=== PATIENT | female | born 1965 | race Caucasian/White ===

== ENCOUNTER 2019-04-06 08:03 | Emergency (ER) | payer MEDICARE, SELFPAY ==
[2019-04-06 08:17] VITALS: BP 134/78; PULSE 104; RESP 18; TEMP 36.2; O2SAT 98
[2019-04-06 08:19] VITALS: BP 121/78
--- NOTE | 2019-04-06 08:19 | ED.DIZZY ---
HPI - Dizziness General Chief Complaint: Dizziness Stated Complaint: Light Headed Time Seen by Provider: 04/06/19 08:20 Source: patient Mode of arrival: ambulatory Limitations: no limitations History of Present Illness HPI Narrative: Olivia Sullivan is a 54 yo female with a PMH of HTN and remote stroke, comes to [facility] with complaints of dizziness x 2 days. Initial BP showed some variance but not enough on sitting and standing for orthostatic hypotension. States had virus a few weeks ago but feeling normal recently. Related Data Home Medications Medication Instructions Recorded Confirmed Vitamin D2 5,000 units DAILY 04/06/19 04/06/19 lisinopril 20 mg PO DAILY 04/06/19 04/06/19 Allergies Allergy/AdvReac Type Severity Reaction Status Date / Time ADAPTIC GAUZE Allergy Severe RASH Uncoded 04/06/19 08:21 ANTIBACTERIAL SOAP Allergy Severe RASH Uncoded 04/06/19 08:21 MEPERIDINE HCL Allergy Unknown RASH Uncoded 04/06/19 08:21 PAROXETINE HCL Allergy Unknown HALLUCINATI Uncoded 04/06/19 08:21 ONS Review of Systems Review of Systems: Narrative: CONSTITUTIONAL: Denies fever, chills, sweats. EYES: Denies visual changes, redness, discharge. ENT: Denies rhinorrhea, congestion, sore throat, otalgia. CARDIOVASCULAR: Denies chest pain, palpitations, edema. RESPIRATORY: Denies dyspnea, wheezing, cough GASTROINTESTINAL: Denies abdominal pain, nausea, vomiting, diarrhea. GENITOURINARY: Denies dysuria, hematuria, abnormal discharge SKIN: Denies rash or itching. MUSCULOSKELETAL: Denies acute back pain, joint pain, or myalgia. NEUROLOGIC: Denies numbness, or focal weakness. States his dizziness on standing PSYCHIATRIC: Denies anxiety or depression. [facility] Family History Family History (Updated 10/27/09 @ 08:42 by DOCTOR UNKNOWN) Other Diabetes mellitus Family history of alcoholism Family history of cardiovascular disease Family history of malignant neoplasm Family history of osteoarthritis Family history of transient ischemic attacks Social History Social History Smoking status: Never smoker Alcohol intake: never Gender identity (if verbalized by the patient): Female Comments At time of signature, I agree with nursing past medical, surgical, social and family history. There is no relevant family history pertinent to the presenting complaint. Exam Narrative: Exam Narrative: GENERAL: This is a well-nourished, well-developed patient, in no apparent distress. HEAD: normocephalic, atraumatic. EYES: PERRL. Sclera clear/white. Vision is grossly intact. EARS: External ears normal, auditory canals clear and without drainage, TMs normal without perforation. Hearing grossly intact. NOSE: External nose normal with no obvious nasal discharge, nares without redness, no rhinorrhea. THROAT: Mucous membranes moist, posterior pharynx clear. NECK: Neck supple, non-tender CARDIOVASCULAR: Regular rate and rhythm without murmurs, gallops, or rubs. RESPIRATORY: Clear to auscultation. Breath sounds equal bilaterally. No wheezes, rales, or rhonchi. GASTROINTESTINAL: Abdomen soft, non-tender, SKIN: warm, intact with no suspicious lesions or rash, good texture and turgor. NEURO: awake, alert, and oriented to person, place and time. There were no obvious focal neurologic abnormalities. Steady gait using walker; has contracture of left hand from remote stroke EXTREMITIES: Normal range of motion. No edema. BACK: Nontender without deformity or crepitance. Course Vital Signs Vital signs: Vital Signs Temperature 97.1 F L 04/06/19 08:17 Pulse Rate 104 H 04/06/19 08:17 Respiratory Rate 18 04/06/19 08:17 Blood Pressure 134/78 04/06/19 08:17 Pulse Oximetry 98 04/06/19 08:17 Temperature 97.1 F L 04/06/19 08:17 Pulse Rate 104 H 04/06/19 08:17 Respiratory Rate 18 04/06/19 08:17 Blood Pressure 121/78 04/06/19 08:19 Pulse Oximetry 98 04/06/19 0
== END 2019-04-06 08:48 | disposition home or self-care (01) ==
PROVIDERS: Emergency Provider Nurse Practitioner; PCP Internal Medicine
DX: H81.13 Benign paroxysmal vertigo, bilateral (principal); Z86.73 Personal history of transient ischemic attack (TIA), and cerebral infarction without residual deficits; I10 Essential (primary) hypertension
CPT/HCPCS: 99213; G0463

== ENCOUNTER 2019-12-09 09:42 | Outpatient (CLI) | payer MEDICARE, SELFPAY ==
--- NOTE | 2019-12-09 10:39 | ECG_ITS ---
Measurements Intervals [place] Rate: 73 P: 32 RI: 166 QRS: -24 QRSD: 151 T: 98 QT: 402 QTc: 446 Interpretive Statements SINUS RHYTHM LEFT BUNDLE BRANCH BLOCK BASELINE ARTIFACT- I, II, III, AVR, AVL, AVF ABNORMAL ECG Electronically Signed On 12-09-2019 11:06:59 CDT by Marco A Bliss D.O.
[2019-12-09 11:13] LABS: Basophils Absolute Auto 0.1 K/mm3 (0.0-0.1); Basophils Percent Auto 0.8 % (0.2-1.2); Eosinophils Absolute Auto 0.3 K/mm3 (0-0.3); Eosinophils Percent Auto 3.4 % (0-4.4); Hematocrit 40.1 % (37.0-47.0); Hemoglobin 13.4 g/dL (12.0-15.0); Immature Granulocyte Absolute 0.02 K/mm3 (0.00-0.031); Immature Granulocyte Percent A 0.3 % (0-0.5); Lymphocytes Absolute Auto 2.05 K/mm3 (0.9-3.2); Lymphocytes Percent Auto 26.7 % (18.3-44.2); Mean Corpuscular HGB Conc 33.4 g/dl (32-36); Mean Corpuscular Hemoglobin 31.3 pg (26-34); Mean Corpuscular Volume 93.7 fl (80-100); Mean Platelet Volume 11.1 fl (7.4-10.4); Monocytes Percent Auto 12.5 % (2.6-8.5); Neutrophils Absolute Auto 4.3 K/mm3 (1.3-6.7); Neutrophils Percent Auto 56.3 % (45.5-73.1); Platelet Count Result 248 k/mm3 (150-375); Red Blood Count 4.28 M/mm3 (4.2-5.4); Red Cell Distribution Width 13.2 % (11.5-14.5); White Blood Count 7.7 K/mm3 (4.5-10.0)
[2019-12-09 11:14] LABS: Add Urine Microscopic? NO; Appearance Urine Clear (Clear); Bilirubin Urine Negative (Negative); Blood Urine Negative (Negative); Color Urine Yellow (Yellow); Glucose Urine UA Negative (Negative); Ketones Urine Negative (Negative); Leukocyte Esterase Ur Negative LEU/UL (Negative); Nitrate Urine Negative (Negative); Protein Urine Negative (Negative); Urobilinogen Urine Negative mg/dL (<2.0)
[2019-12-09 11:21] LABS: Prothrombin Time 12.4 Seconds (11.1-14.7)
[2019-12-09 11:22] LABS: Partial Thromboplastin Time 25.2 SECONDS (22.3-36.8)
[2019-12-09 11:23] LABS: Hemoglobin A1C 5.1 % (<5.7); Urine Cotinine NEGATIVE
[2019-12-09 11:24] LABS: Albumin Level 4.3 g/dL (3.5-5.1); Anion Gap 7 mmol/L (8-16); Blood Urea Nitrogen 20 mg/dL (7-17); Calcium 9.4 mg/dL (8.4-10.2); Carbon Dioxide 28 mmol/L (22-30); Chloride 104 mmol/L (98-107); Estimated Glomerular Filt Rate 52; Glucose 93 mg/dL (65-105); Potassium 4.4 mmol/L (3.4-5.0); Sodium 139 mmol/L (137-145)
== END 2019-12-09 09:43 | disposition home or self-care (01) ==
PROVIDERS: PCP Internal Medicine; Visit Provider Orthopaedic Surgery
DX: Z01.812 Encounter for preprocedural laboratory examination (principal); M17.11 Unilateral primary osteoarthritis, right knee; Z01.810 Encounter for preprocedural cardiovascular examination
CPT/HCPCS: 36415; 80048; 80307; 81003; 82040; 83036; 85025; 85610; 85730; 86850; 86900; 86901; 87081; 93005

== ENCOUNTER 2019-12-14 00:35 | Outpatient (CLI) | payer MEDICARE, SELFPAY ==
[2019-12-14 17:37] LABS: SARS-CoV-2 RNA PCR Negative
== END 2019-12-14 00:36 | disposition home or self-care (01) ==
LOC: ANHCOVIDDT 00:35
PROVIDERS: PCP Internal Medicine; Visit Provider Orthopaedic Surgery
DX: Z01.812 Encounter for preprocedural laboratory examination (principal); Z20.828 Contact with and (suspected) exposure to other viral communicable diseases
CPT/HCPCS: 87635; C9803; U0003

== ENCOUNTER 2019-12-18 14:53 | Observation (INO) | payer MEDICARE, SELFPAY ==
[2019-12-09 10:02] VITALS: BMI 38.4
[2019-12-09 10:36] VITALS: BP 124/77; PULSE 80; RESP 16; TEMP 36.9; O2SAT 98
[2019-12-17] VITALS (10 sets, daily range): BP systolic 108–139; BP diastolic 55–80; PULSE 72–106; RESP 13–27; TEMP 35.7–37.2; O2SAT 93–99
--- NOTE | 2019-12-17 07:20 | WPDHPUPDATE1 ---
History and Physical Update Update Date/Time: 12/17/19 07:20 History and Physical has been reviewed, including an updated exam of the patient. There are NO changes in the patient's condition. Risks, benefits, and alternatives have been discussed and questions answered. Patient agrees to proceed with procedure.
--- NOTE | 2019-12-17 09:46 | WPDANESEPPF ---
Anes - Initial Pre Proc Eval Procedure: Operation Date: 12/17/19 11:30 Proposed Procedures p Right Total Knee Arthroplasty - Miguel Murphy MD Date/Time: 12/17/19 09:46 Surgeon: Miguel Murphy MD Pre Op Diagnosis: Right Knee DJD Patient Data Age: 54 Gender: F Height: 1.65 m Weight: 103.5 kg Last Vital Signs Temp 36.9 C 12/09/19 10:36 Pulse 80 12/09/19 10:36 Resp 16 12/09/19 10:36 BP 124/77 12/09/19 10:36 Pulse Ox 98 12/09/19 10:36 Allergies Allergy/AdvReac Type Severity Reaction Status Date / Time meperidine Allergy Severe Rash Verified 12/17/19 09:47 paroxetine AdvReac Mild Hallucinati Verified 12/17/19 09:48 ng ADAPTIC GAUZE Allergy Severe RASH Uncoded 12/09/19 13:08 ANTIBACTERIAL SOAP Allergy Severe RASH Uncoded 12/09/19 13:08 Home Medications Medication Instructions Recorded Confirmed Type lisinopril 20 mg PO HS 04/06/19 12/17/19 History chlorhexidine gluconate 4 % 1 applic TOPICAL ONCE #237 ml 11/19/19 12/09/19 Rx topical liquid cholecalciferol (vitamin D3) 125 mcg PO HS 12/09/19 12/17/19 History ECG: Date of Service: 12/09/19 Procedure(s): CA 12 lead EKG Accession Number(s): [id number] cc: ~ Measurements Intervals [place] Rate: 73 P: 32 HI: 166 QRS: -24 QRSD: 151 T: 98 QT: 402 QTc: 446 Interpretive Statements SINUS RHYTHM LEFT BUNDLE BRANCH BLOCK BASELINE ARTIFACT- I, II, III, AVR, AVL, AVF ABNORMAL ECG Electronically Signed On 12-09-2019 11:06:59 CDT by Marco A Bliss D.O. Dictated By: Marco A Bliss DO 12/09/19 1109 Patient hx anesthesia problems: none Family hx anesthesia problems: none PMFSH Past Medical History Medical History (Updated 12/17/19 @ 09:47 by Jose De Los Santos MD) Chondromalacia patellae of right knee CVA (cerebral vascular accident) HTN (hypertension) Obesity Primary osteoarthritis of right knee Traumatic arthritis of left ankle Surgical History Surgical History H/O knee surgery Status post ankle arthrodesis Family History Family History Other Diabetes mellitus Family history of alcoholism Family history of cardiovascular disease Family history of malignant neoplasm Family history of osteoarthritis Family history of transient ischemic attacks Social History Social History Smoking status: Never smoker Second hand tobacco smoke exposure: No Additional smoking assessment comments: DENIES ANY FORM OF TOBACCO/NICOTINE USE Alcohol intake: never Living arrangements: alone Gender identity (if verbalized by the patient): Female Spiritual care concerns: No Anes - Eval Final PreProcedure Day of Procedure 12/17/19 09:46 Patient weight: obese Heart: regular rate and rhythm Lungs: clear to auscultation and normal air movement Airway: Mallampati scale class II Neurological: alert and oriented Last oral intake: >/= 8 hours ASA classification: III Emergent: no Anesthetic plan: proceed Anesthesia type and monitoring: general LMA and ETT Informed Consent: The patient's anesthetic plan and its attendant risks and benefits were discussed with the patient/family/POA. Questions were solicited and answers provided to the satisfaction of the patient/family/POA.
[2019-12-17] MEDS: ACETAMINOPHEN 500 MG TABLET 1000 MG PO (09:54)
[2019-12-17] MEDS: LACTATED RINGERS 1,000 ML 30 ML IV CONT ×2 (10:07→13:32)
[2019-12-17] MEDS: KETOROLAC 15 MG/ML VIAL (*BKC) IV PUSH (10:08)
[2019-12-17] MEDS: TRANEXAMIC ACID 1,000MG/ISO100 1,000 MG/100 ML BAG 200 MG IVPB (10:36)
--- NOTE | 2019-12-17 10:43 | WPDANESPNB ---
Anes - Peripheral Nerve Block Date/Time: 12/17/19 10:43 I have discussed with the patient/family/POA the placement of a peripheral nerve block for post-operative pain management, including associated risks, benefits, complications, and side effects. Alternative methods of post-operative analgesia were detailed. Questions were solicited and answers provided to the satisfaction of the patient/family/POA. Time-Out: A pre-procedural Time-Out was completed immediately before starting the procedure and confirmed: Patient Identification, Site, Procedure, Patient Position and the Availability of Requisite Equipment. Clinical Indications: Acute post-operative pain management requested by the operative surgeon. Nerve Block Insertion Note Anes-nerve block: adductor canal right Patient position: supine Skin prep: chlorhexidine Needle: 22 gauge, stimulating, insulated echogenic needle. Needle length: 80 mm Technique: ultrasound Technique comment: in plane Injectate: bupivacaine 0.5% with epi 5 mcg/ml (30cc) Observations: tolerated well Complications: none Procedure start time:: 1050 Procedure end time:: 1055
[2019-12-17] MEDS: ceFAZolin 2 GM/D5W 50 ML 2 GM/50 ML BAG IVPB ×2 (11:09→18:26)
--- NOTE | 2019-12-17 13:29 | PM.PROC ---
Procedure Note - Detailed Date of procedure: 12/17/19 Pre-op diagnosis: Right Knee DJD Post-op diagnosis: same Procedure performed: R TKA Description of procedure: THE RIGHT KNEE WAS PREPPED AND DRAPED IN THE STERILE FASHION. THERE WAS APPROXIMATELY 20 DEG OF FLEXION CONTRACTURE. A MIDLINE SKIN INCISION WAS MADE. A MEDIAL PARAPATELLAR ARTHROTOMY WAS MADE. THE PATELLA WAS EVERTED. THERE WAS TRICOMPARTMENT DJD. THERE WAS MINIMAL PATELLA DJD. AN INTRAMEDULLARY TACOS WAS PLACED IN THE FEMUR. A DISTAL FEMORAL CUT WAS MADE IN 5 DEGREES OF VALGUS REMOVING APPROXIMATELY 12 MM OF BONE FROM THE DISTAL FEMUR. THE FEMUR WAS SIZED TO 62.5. A 62.5 FEMORAL CUTTING BLOCK WAS PLACED IN 3 DEGREES OF EXTERNAL ROTATION AND IN ALIGNMENT WITH JAIDEN'S LINE AND THE TRANSEPICONDYLAR AXIS. ANTERIOR POSTERIOR AND CHAMFER CUTS WERE MADE. THE CUTS WERE EXCELLENT. NEXT AN INTRAMEDULLARY CUTTING GUIDE WAS PLACED IN THE TIBIA. A TRANS TIBIAL CUT WAS MADE ALONG THE LONG AXIS OF THE TIBIA. APPROXIMATELY 10 MM OF BONE WAS REMOVED FROM THE HIGH SIDE OF THE TIBIA. THE TIBIA WAS THEN PLANED TO A SMOOTH SURFACE. POSTERIOR FEMORAL OSTEOPHYTES WERE REMOVED FROM THE FEMORAL CONDYLES. A 67 TIBIAL TRIAL WAS PLACED IN ALIGNMENT WITH THE 1/3 MEDIAL ASPECT OF THE TIBIAL TUBERCLE. THEN A 62.5 FEMORAL TRIAL COMPONENT WAS PLACED. BOTH HAD EXCELLENT FITS. EVENTUALLY A 14 MM POLYETHYLENE TRIAL COMPONENT WAS PLACED. THE KNEE WAS TAKEN THROUGH A RANGE OF MOTION. THE KNEE CAME OUT TO FULL EXTENSION. THERE WAS NO ABNORMAL TILT TO THE PATELLA. THERE WAS GOOD A/P AND VARUS/VALGUS STABILITY. THERE WAS NO EXCESSIVE ROLL BACK WITH FLEXION. THE TRIAL COMPONENTS WERE REMOVED. THEN A 62.5 FEMORAL COMPONENT AND 67 TIBIAL COMPONENT WITH A 14 MM POLYETHYLENE COMPONENT WERE CEMENTED INTO PLACE. THE IMPLANTS WERE FLUSH WITH THE CUT BONE SURFACES. THE KNEE WAS TAKEN THROUGH A ROM AGAIN AND FOUND TO BE STABLE WITH NO PATELLA TILT NO EXCESSIVE ROLL BACK WITH FLEXION AND GOOD STABILITY WITH COMPLETE AND FULL EXTENSION. THE KNEE WAS IRRIGATED WITH STERILE BETADINE AND WATER FOR ABOUT 3 MINUTES. THE BLEEDERS WERE CAUTERIZED. THE ARTHROTOMY WAS REPAIRED WITH NUMBER 1 VICRYL. THE SUB CUTANEOUS LAYER WITH 2-0 VICRYL AND THE SKIN WITH KAVIN. THE WOUND WAS WASHED AND A STERILE DRESSING WAS APPLIED. PATIENT WAS EXTUBATED. Anesthesia: GETA Surgeon: Miguel Murphy MD Estimated blood loss (mL): 100 Complications: No immediate complications Condition: stable Disposition: PACU
[2019-12-17] MEDS: SODIUM CHLORIDE 0.9% IV 1,000 ML 125 ML IV CONT ×2 (14:45→23:53)
[2019-12-17] MEDS: ONDANSETRON INJ 4 MG/2 ML VIAL IV PUSH (14:45)
[2019-12-17] MEDS: MORPHINE SULFATE (*CRX) 4 MG/ML INJ IV PUSH (14:54)
[2019-12-17 16:28] LABS: Estimated CRCL calculation 75 ml/min; Estimated Glomerular Filt Rate > 60
[2019-12-17] MEDS: CELECOXIB 200 MG CAPSULE PO (16:36)
[2019-12-17] MEDS: HYDROcodone/acetaminophen (*CRX) 7.5-325 MG TABLET 1 TAB PO ×2 (16:36→20:51)
[2019-12-17] MEDS: PROMETHAZINE HCL 25 MG/ML AMPUL 12.5 MG IV PUSH (18:22)
[2019-12-17] MEDS: DOCUSATE SODIUM 100 MG CAPSULE PO (18:30)
[2019-12-17] MEDS: lisinopriL 20 MG TABLET PO (20:51)
[2019-12-17] MEDS: FAMOTIDINE 20 MG TABLET PO (20:52)
[2019-12-18] VITALS (7 sets, daily range): BP systolic 103–125; BP diastolic 52–68; PULSE 75–96; RESP 15–18; TEMP 36.6–37.2; O2SAT 93–99
--- NOTE | ~2019-12-18 | XR_ITS ---
EXAMINATION: XR knee RT 2V DATE: 12/17/2019 13:56 CDT INDICATION: Right total knee arthroplasty TECHNIQUE: 2 views right knee FINDINGS: There is a right total knee arthroplasty in expected position. Subcutaneous gas with fluid and air in the joint and overlying skin caterina are consistent with recent surgery. No evidence of p eriprosthetic fracture. IMPRESSION: 1. Recent right total knee arthroplasty. Reviewed, dictated and finalized at location B.
[2019-12-18] MEDS: HYDROcodone/acetaminophen (*CRX) 7.5-325 MG TABLET 1 TAB PO ×6 (01:34→20:20)
[2019-12-18] MEDS: ceFAZolin 2 GM/D5W 50 ML 2 GM/50 ML BAG IVPB ×2 (03:00→11:31)
[2019-12-18 06:16] LABS: Basophils Percent Auto 0.2 % (0.2-1.2); Eosinophils Percent Auto 0.2 % (0-4.4); Hematocrit 34.5 % (37.0-47.0); Hemoglobin 11.2 g/dL (12.0-15.0); Immature Granulocyte Absolute 0.07 K/mm3 (0.00-0.031); Immature Granulocyte Percent A 0.5 % (0-0.5); Lymphocytes Absolute Auto 1.04 K/mm3 (0.9-3.2); Lymphocytes Percent Auto 8.1 % (18.3-44.2); Mean Corpuscular HGB Conc 32.5 g/dl (32-36); Mean Corpuscular Hemoglobin 31.5 pg (26-34); Mean Corpuscular Volume 97.2 fl (80-100); Mean Platelet Volume 11.1 fl (7.4-10.4); Monocytes Absolute Auto 1.5 K/mm3 (0.1-0.6); Neutrophils Absolute Auto 10.1 K/mm3 (1.3-6.7); Platelet Count Result 230 k/mm3 (150-375); Red Blood Count 3.55 M/mm3 (4.2-5.4); Red Cell Distribution Width 13.2 % (11.5-14.5); White Blood Count 12.8 K/mm3 (4.5-10.0)
[2019-12-18 06:42] LABS: Anion Gap 9 mmol/L (8-16); Blood Urea Nitrogen 22 mg/dL (7-17); Calcium 8.2 mg/dL (8.4-10.2); Carbon Dioxide 23 mmol/L (22-30); Chloride 104 mmol/L (98-107); Estimated CRCL calculation 75 ml/min; Estimated Glomerular Filt Rate > 60; Glucose 107 mg/dL (65-105); Potassium 4.4 mmol/L (3.4-5.0); Sodium 136 mmol/L (137-145)
[2019-12-18] MEDS: ONDANSETRON INJ 4 MG/2 ML VIAL IV PUSH (08:00)
[2019-12-18] MEDS: PROMETHAZINE HCL 25 MG/ML AMPUL 12.5 MG IV PUSH (09:27)
--- NOTE | 2019-12-18 09:35 | PC.NURSE ---
Patient remains nauseated after receiving Zofran. Phenergan IV given and po meds held until patient has relief from nausea.
[2019-12-18] MEDS: ASPIRIN 325 MG ENTERIC TABLET 650 MG PO (10:08)
[2019-12-18] MEDS: CELECOXIB 200 MG CAPSULE PO ×2 (10:08→16:41)
[2019-12-18] MEDS: DOCUSATE SODIUM 100 MG CAPSULE PO ×2 (10:09→16:41)
[2019-12-18] MEDS: FAMOTIDINE 20 MG TABLET PO ×2 (10:09→20:20)
--- NOTE | 2019-12-18 13:04 | WPDANESPN ---
Anes - Prog Note Post-Op Date/Time: 12/18/19 13:04 Cardiovascular status: normal Respiratory status: normal Airway patency: baseline Mental status: baseline Post-Op hydration status: normal Vital Signs: Last Vital Signs Temp 98.8 F 12/18/19 09:45 Pulse 91 12/18/19 09:45 Resp 15 12/18/19 09:45 BP 110/58 L 12/18/19 09:45 Pulse Ox 93 12/18/19 10:00 Pain Score (VAS): 07/06 I/O: Intake & Output 12/17/19 12/18/19 12/18/19 23:59 07:59 15:59 Intake Total 2524 180 9805 Output Total 400 Balance 1050 -200 1170 Laboratory Tests 12/18/19 05:54 12/18/19 05:54 12/17/19 12/18/19 12/18/19 16:05 05:54 05:54 WBC 12.8 H RBC 3.55 L Hgb 11.2 L Hct 34.5 L MCV 97.2 MCH 31.5 MCHC 32.5 RDW 13.2 Plt Count 230 MPV 11.1 H Immature Gran % (Auto) 0.5 Neut % (Auto) 79.0 H Lymph % (Auto) 8.1 L Summers % (Auto) 12.0 H Eos % (Auto) 0.2 Baso % (Auto) 0.2 Lymph # (Auto) 1.04 Summers # (Auto) 1.5 H Eos # (Auto) 0.0 Baso # (Auto) 0.0 Abs Immat Gran (auto) 0.07 H Absolute Neuts (auto) 10.1 H Absolute Nucleated RBC 0.0 Nucleated RBC % 0.0 Sodium 136 L Potassium 4.4 Chloride 104 Carbon Dioxide 23 Anion Gap 9 BUN 22 H Creatinine 0.90 0.90 Estim Creat Clear Calc 75 75 Estimated GFR > 60 > 60 Glucose 107 H Calcium 8.2 L Post-procedural complaints: none Patient Feedback: Patient satisfied with overall anesthetic care. PNB was not working according to report from pt and surgeon
--- NOTE | 2019-12-18 13:13 | PM.PNORT ---
Progress Note: A&P Additional Plan POD 1 DOING WELL WITH PAIN CONTROL PROBLEMS DUE TO INEFFECTIVE FEMORAL NERVE BLOCK. CONTINUE PT. Subjective Subjective Date/Time Seen: 12/18/19 POD 1 DOING WELL. PAIN CONTROL PROBLEMS, NO CALF PAIN, 3:13 Exam Extrem: Other: VSS AFEBRILE DRESSING DRY NV INTACT CALF SOFT NON TENDER Objective Data Vital Signs Vital Signs: Vital Signs - 24 hr 12/17/19 13:32 12/17/19 13:45 12/17/19 14:00 Temperature 36.7 C Pulse Rate 106 H 93 100 Respiratory Rate 21 H 27 H 22 H Blood Pressure 115/66 108/74 119/67 Pulse Oximetry 94 95 96 12/17/19 14:15 12/17/19 14:40 12/17/19 14:55 Temperature 35.7 C L 36.0 C L Pulse Rate 99 98 86 Respiratory Rate 13 16 18 Blood Pressure 111/65 134/67 139/65 Pulse Oximetry 94 95 93 12/17/19 15:25 12/17/19 16:25 12/17/19 22:00 Temperature 35.8 C L 36.6 C Pulse Rate 72 72 89 Respiratory Rate 16 20 16 Blood Pressure 135/80 112/55 L 122/67 Pulse Oximetry 96 99 95 12/18/19 02:00 12/18/19 05:30 12/18/19 09:45 Temperature 36.9 C 37.2 C 37.1 C Pulse Rate 85 96 91 Respiratory Rate 16 18 15 Blood Pressure 110/68 125/66 110/58 L Pulse Oximetry 98 97 99 12/18/19 10:00 Temperature Pulse Rate Respiratory Rate Blood Pressure Pulse Oximetry 93 Intake/Output Intake/Output: Intake & Output 12/15/19 12/16/19 12/17/19 12/18/19 23:59 23:59 23:59 23:59 Intake Total 1400 1370 Output Total 400 Balance 1400 970 Meds/Results Medications: Active Medications Generic Name Dose Route Start Last Admin Trade Name Freq PRN Reason Stop Dose Admin Acetaminophen 1,000 mg 12/17/19 14:27 Acetaminophen 500 Mg Tablet PO Q6H PRN Mild Pain (1-3) Hydrocodone Bitart/Acetaminophen 1 tab 12/17/19 17:00 12/18/19 13:07 Hydrocodone/Acetaminophen (*Crx) 7.5-325 Mg Tablet PO 1 tab Q4HR COURTNEY Administration Aspirin 650 mg 12/18/19 09:00 12/18/19 10:08 Aspirin 325 Mg Enteric Tablet PO 650 mg DAILY COURTNEY Administration Celecoxib 200 mg 12/17/19 17:00 12/18/19 10:08 Celecoxib 200 Mg Capsule PO 200 mg BIDWM COURTNEY Administration Diazepam 5 mg 12/17/19 14:27 Diazepam (*Crx) 5 Mg Tablet PO Q8H PRN Spasms Diphenhydramine HCl 25 mg 12/17/19 14:27 Diphenhydramine Hcl Inj 50 Mg/Ml Vial IV PUSH Q6H PRN Itching Docusate Sodium 100 mg 12/17/19 17:00 12/18/19 10:09 Docusate Sodium 100 Mg Capsule PO 100 mg BID COURTNEY Administration Famotidine 20 mg 12/17/19 21:00 12/18/19 10:09 Famotidine 20 Mg Tablet PO 20 mg Q12HR COURTNEY Administration Lisinopril 20 mg 12/17/19 21:00 12/17/19 20:51 Lisinopril 20 Mg Tablet PO 20 mg HS COURTNEY Administration Morphine Sulfate 4 mg 12/17/19 14:27 12/17/19 14:54 Morphine Sulfate (*Crx) 4 Mg/Ml Inj IV PUSH 4 mg Q2H PRN Administration Breakthrough pain rated 7-10 Naloxone HCl 0.1 mg 12/17/19 14:27 Naloxone Hcl 0.4 Mg/Ml Vial IV PUSH Q2M PRN Opiate Reversal Ondansetron HCl 4 mg 12/17/19 14:27 12/18/19 08:00 Ondansetron Inj 4 Mg/2 Ml Vial IV PUSH 4 mg Q4H PRN Administration Nausea And Vomiting Oxycodone/Acetaminophen 1 tablet 12/17/19 14:27 Oxycodone/Acetaminophen (*Crx) 5-325 Mg Tablet PO Q4H PRN Pain Rated 4-6 Promethazine HCl 12.5 mg 12/17/19 17:55 12/18/19 09:27 Promethazine Hcl 25 Mg/Ml Ampul IV PUSH 12.5 mg Q4H PRN Administration Nausea And Vomiting Radiology Results: ITS Impressions Knee X-Ray 12/17/19 13:56 IMPRESSION: 1. Recent right total knee arthroplasty. Labs Labs: Laboratory Results - last 24 hr 12/17/19 12/18/19 12/18/19 16:05 05:54 05:54 WBC 12.8 H RBC 3.55 L Hgb 11.2 L Hct 34.5 L MCV 97.2 MCH 31.5 MCHC 32.5 RDW 13.2 Plt Count 230 MPV 11.1 H Immature Gran % (Auto) 0.5 Neut % (Auto) 79.0 H Lymph % (Auto) 8.1 L Mathews % (Auto) 12.0 H Eos % (Auto) 0.2
[2019-12-18] MEDS: oxyCODONE/ACETAMINOPHEN (*CRX) 5-325 MG TABLET 1 TABLET PO ×2 (14:25→18:50)
[2019-12-18] MEDS: lisinopriL 20 MG TABLET PO (20:20)
[2019-12-19] MEDS: HYDROcodone/acetaminophen (*CRX) 7.5-325 MG TABLET 1 TAB PO ×6 (01:29→20:42)
[2019-12-19 01:58] VITALS: BP 106/60; PULSE 69; RESP 20; TEMP 36.2; O2SAT 98
[2019-12-19 06:00] VITALS: BP 104/59; PULSE 73; RESP 20; TEMP 36.1; O2SAT 98
[2019-12-19] MEDS: ONDANSETRON INJ 4 MG/2 ML VIAL IV PUSH ×2 (07:56→11:47)
--- NOTE | 2019-12-19 08:53 | PCOTNOTE ---
Attempted to see patient this am, however patient not feeling well. Pt having severe nausea.
[2019-12-19] MEDS: FAMOTIDINE 20 MG TABLET PO ×2 (09:02→20:41)
[2019-12-19] MEDS: ASPIRIN 325 MG ENTERIC TABLET 650 MG PO (09:02)
[2019-12-19] MEDS: CELECOXIB 200 MG CAPSULE PO ×2 (09:02→16:46)
[2019-12-19] MEDS: DOCUSATE SODIUM 100 MG CAPSULE PO ×2 (09:02→16:46)
[2019-12-19 09:04] VITALS: BP 104/57; PULSE 77; RESP 20; TEMP 36.4; O2SAT 96
--- NOTE | 2019-12-19 09:10 | PM.PNORT ---
Progress Note: A&P Assessment and Plan (1) Status post total knee replacement: Qualifiers: Laterality: right Qualified Code(s): Z96.651 - Presence of right artificial knee joint Code(s): Z96.659 - Presence of unspecified artificial knee joint Status: Acute Assessment and Plan: POD #2: RIGHT TKA Continue PT/OT. WBAT. Walker with forearm attachment, ordered. Continue pain control. Ice. No pillows under knee. Continue SCDs. Incentive spirometry. Continue DVT prophylaxis. Monitor dressing. Plan for change prior to discharge. Dispo: [facility] vs. Acute Rehab (2) Nausea: Code(s): R11.0 - Nausea Status: Acute Assessment and Plan: Continue antiemetic as needed (3) CVA (cerebral vascular accident): Qualifiers: CVA mechanism: other Qualified Code(s): I63.89 - Other cerebral infarction Code(s): I63.9 - Cerebral infarction, unspecified Status: Acute Assessment and Plan: Previous history of stroke with residual left sided weakness. Minimal use of left upper arm. Will order walker with forearm attachment for additional balance. Patient may need evaluation for [facility] vs. Acute Rehab at [facility] due to recent surgical intervention and concerns about discharge home alone with left sided weakness. Subjective Subjective Date/Time Seen: 12/19/19 09:10 POD#2: RIGHT TKA Continued complaints of pain of the right knee. Slow progress with PT/OT. Nausea this AM but believes it was caused by taking her pain medication on an empty stomach. Worried about going home by herself at this point due to prior stroke with residual left sided weakness. Her son is now unable to be with her at home upon discharge due to being in the and having work obligations over the weekend. Review of Systems Review of Systems: All systems reviewed & are unremarkable except as noted in HPI and below Constitutional: Constitutional: Denies fever(s) and Denies headache(s) ENT: Denies headache(s) Cardiovascular: Cardiovascular: Denies chest pain, Denies diaphoresis, Denies palpitations and Denies dyspnea Respiratory: Respiratory: Denies dyspnea Gastrointestinal: Gastrointestinal: Denies abdominal pain, Denies constipation, Reports nausea (this AM after taking pain medication on an empty stomach ) and Denies vomiting Genitourinary: Genitourinary: Reports nocturia and Denies dysuria Musculoskeletal: Musculoskeletal: Reports arthralgias (Right Knee ) and Reports joint swelling (Right Knee ) Neurologic: Denies headache(s) Endocrine: Endocrine: Denies palpitations Exam Const: General: comfortable and no acute distress Resp: Effort & Inspection: normal respiratory effort Cardio: Rate: regular rate Rhythm: regular rhythm GI: GI Palp: Yes Soft to palpation, No Tenderness to palpation present (GI) and No Guarding due to palpation present (GI) Skin: Wounds: wounds noted Other: Incision c/d/i. No surrounding redness/warmth. No hematoma. Mild ecchymosis. No wound dehiscence Neuro: Cognition (Neuro): normal cognition Speech: normal speech Motor exam (neuro): Abnormal motor strength present (LUE/LLE ) Sensory Exam: normal sensation Other: NV intact. Moves toes. Sensation intact to light touch. +ankle dorsiflexion/plantarflexion. Extrem: Right upper extremity: normal to inspection, full ROM and normal capillary refill Left upper extremity: normal capillary refill, elbow/forearm (weakness due to previous history of stroke ), wrist (weakness ) and hand (contracture left hand ) Right lower extremity: normal to inspection, full ROM (ROM limited due to recent surgical intervention ) and knee Details: tenderness (diffuse, mild ), swelling (diffuse, mild ) Location: of the patella, abnormal ROM (limited due to recent surgical intervention ) Details: pain with active ROM during Details: in extension and in flexion and pain with passive ROM during Details: in extension and in flexion; abl
--- NOTE | 2019-12-19 10:18 | PC.NURSE ---
reviewed order for possible wrist rest for walker per order with PT, they are getting ready to work with pt and eval needs
[2019-12-19] MEDS: MORPHINE SULFATE (*CRX) 4 MG/ML INJ IV PUSH (11:47)
[2019-12-19 13:24] VITALS: BP 99/64; PULSE 77; RESP 16; TEMP 36.6; O2SAT 93
[2019-12-19 22:00] VITALS: BP 99/44; PULSE 87; RESP 20; TEMP 36.2; O2SAT 94
--- NOTE | 2019-12-19 22:08 | PCDIET ---
2100 dr. george informed lisinopril held due to bp of 99/44
[2019-12-20] MEDS: HYDROcodone/acetaminophen (*CRX) 7.5-325 MG TABLET 1 TAB PO ×3 (00:41→08:42)
[2019-12-20 02:08] VITALS: BP 125/67; PULSE 85; RESP 18; TEMP 36.3; O2SAT 97
[2019-12-20 06:00] VITALS: BP 117/63; PULSE 84; RESP 20; TEMP 36.6; O2SAT 97
[2019-12-20] MEDS: DOCUSATE SODIUM 100 MG CAPSULE PO (08:41)
[2019-12-20] MEDS: ASPIRIN 325 MG ENTERIC TABLET 650 MG PO (08:41)
[2019-12-20] MEDS: FAMOTIDINE 20 MG TABLET PO (08:41)
[2019-12-20] MEDS: CELECOXIB 200 MG CAPSULE PO (08:41)
--- NOTE | 2019-12-20 09:23 | PM.PNORT ---
Progress Note: A&P Assessment and Plan (1) Status post total knee replacement: Qualifiers: Laterality: right Qualified Code(s): Z96.651 - Presence of right artificial knee joint Code(s): Z96.659 - Presence of unspecified artificial knee joint Status: Acute Assessment and Plan: POD #3: RIGHT TKA Continue PT/OT. WBAT. Walker. Continue pain control. Ice. No pillows under knee. Continue SCDs. Incentive spirometry. Continue DVT prophylaxis. Monitor dressing. Change prior to discharge. Dispo: Home with Home Health likely today pending progress with PT/OT. (2) Nausea: Code(s): R11.0 - Nausea Status: Acute Assessment and Plan: Continue antiemetic as needed Subjective Subjective Date/Time Seen: 12/20/19 09:23 POD #3: Right TKA Patient reports improvement in progress at this time. Well controlled pain. Low BP x1 overnight. No lightheadedness or dizziness. No nausea today. Patient would like to go home as opposed to [facility] or SNF. She will have family at home with her. Review of Systems Review of Systems: All systems reviewed & are unremarkable except as noted in HPI and below Constitutional: Constitutional: Denies fever(s) and Denies headache(s) ENT: Denies headache(s) Cardiovascular: Cardiovascular: Denies chest pain, Denies diaphoresis, Denies palpitations and Denies dyspnea Respiratory: Respiratory: Denies dyspnea Gastrointestinal: Gastrointestinal: Denies abdominal pain, Denies constipation, Denies nausea and Denies vomiting Genitourinary: Genitourinary: Reports nocturia and Denies dysuria Musculoskeletal: Musculoskeletal: Reports arthralgias (Right Knee ) and Reports joint swelling (Right Knee ) Neurologic: Denies headache(s) Endocrine: Endocrine: Denies palpitations Exam Const: General: comfortable and no acute distress Resp: Effort & Inspection: normal respiratory effort Cardio: Rate: regular rate Rhythm: regular rhythm GI: GI Palp: Yes Soft to palpation, No Tenderness to palpation present (GI) and No Guarding due to palpation present (GI) Skin: Wounds: wounds noted Other: Incision c/d/i. No surrounding redness/warmth. No hematoma. Mild ecchymosis. No wound dehiscence Neuro: Cognition (Neuro): normal cognition Speech: normal speech Motor exam (neuro): Abnormal motor strength present (LUE/LLE ) Sensory Exam: normal sensation Other: NV intact. Moves toes. Sensation intact to light touch. +ankle dorsiflexion/plantarflexion. Extrem: Right upper extremity: normal to inspection, full ROM and normal capillary refill Left upper extremity: normal capillary refill, elbow/forearm (weakness due to previous history of stroke ), wrist (weakness ) and hand (contracture left hand ) Right lower extremity: normal to inspection, full ROM (ROM limited due to recent surgical intervention ) and knee Details: tenderness (diffuse, mild ), swelling (diffuse, mild ) Location: of the patella, abnormal ROM (limited due to recent surgical intervention ) Details: pain with active ROM during Details: in extension and in flexion and pain with passive ROM during Details: in extension and in flexion; able to extend lower leg actively and ecchymosis (mild surrounding incision ) Left lower extremity: normal to inspection, ankle (weakness ) and foot (weakness ) Other: History of left sided weakness s/p stroke. Minimal use of LUE due to stroke history. Psych: Mental Status: mental status grossly normal Affect: Anxious affect present (anxious about discharge home ) Thought content: Yes Normal thought content present Objective Data Vital Signs Vital Signs: Vital Signs - 24 hr 12/19/19 13:24 12/19/19 22:00 12/20/19 02:08 Temperature 36.6 C 36.2 C L 36.3 C L Pulse Rate 77 87 85 Respiratory Rate 16 20 18 Blood Pressure 99/64 L 99/44 L 125/67 Pulse Oximetry 93 94 97 12/20/19 06:00 Temperature 36.6 C Pulse Rate 84 Respiratory Rate 20 Blood Pressure 117/63 Pulse Oximet
[2019-12-20 10:00] VITALS: BP 111/61; PULSE 93; RESP 16; TEMP 36.7; O2SAT 98
[2019-12-20] MEDS: oxyCODONE/ACETAMINOPHEN (*CRX) 5-325 MG TABLET 1 TABLET PO (10:29)
[2019-12-20] MEDS: ONDANSETRON INJ 4 MG/2 ML VIAL IV PUSH (13:03)
--- NOTE | 2019-12-20 13:39 | PM.DS ---
DS: Admitting Diagnosis Admitting Diagnosis Admitting Diagnosis: Right Knee DJD DS: Discharge Diagnosis Discharge Diagnosis (1) Status post total knee replacement: Qualifiers: Laterality: right Qualified Code(s): Z96.651 - Presence of right artificial knee joint Code(s): Z96.659 - Presence of unspecified artificial knee joint Status: Acute Assessment and Plan: POD #3: RIGHT TKA Continue PT/OT. WBAT. Walker. Continue pain control. Ice. No pillows under knee. Continue SCDs. Incentive spirometry. Continue DVT prophylaxis. Monitor dressing. Change prior to discharge. Dispo: Home with Home Health likely today pending progress with PT/OT. (2) Nausea: Code(s): R11.0 - Nausea Status: Acute Assessment and Plan: Continue antiemetic as needed DS: Summary Hospital Course Reason for hospitalization: Right total knee replacement Hospital Course: 54-year-old female admitted status post right total knee replacement for postoperative medical management, pain control in formal physical therapy and occupational therapy. The patient progressed well with PT and OT however she did have a slow progression due to weakness in the left upper extremity and left lower extremity status post stroke many years ago. We briefly considered acute rehab however the patient declines at this time. She was cleared from physical therapy therapy standpoint to go home with home health. She does have a family member that will be staying with her until her son returns on Monday. She is medically stable for discharge as well. Her pain is under control. She will be discharged home with home health. Her dressing was changed prior to discharge. She will follow up in our outpatient clinic in 3 weeks for re-evaluation. Status at Discharge Cognitive/behavioral status at discharge: stable Functional status at discharge: uses cane/walker ( Denied need for formal walker) Overall status at discharge: patient is progressing back to baseline Time Spent with Patient Time attestation: Total time spent providing and/or coordinating discharge services: Exam Const: General: comfortable and no acute distress Resp: Effort & Inspection: normal respiratory effort Cardio: Rate: regular rate Rhythm: regular rhythm GI: GI Palp: Yes Soft to palpation, No Tenderness to palpation present (GI) and No Guarding due to palpation present (GI) Skin: Wounds: wounds noted Other: Incision c/d/i. No surrounding redness/warmth. No hematoma. Mild ecchymosis. No wound dehiscence Neuro: Cognition (Neuro): normal cognition Speech: normal speech Motor exam (neuro): Abnormal motor strength present (LUE/LLE ) Sensory Exam: normal sensation Other: NV intact. Moves toes. Sensation intact to light touch. +ankle dorsiflexion/plantarflexion. Extrem: Right upper extremity: normal to inspection, full ROM and normal capillary refill Left upper extremity: normal capillary refill, elbow/forearm (weakness due to previous history of stroke ), wrist (weakness ) and hand (contracture left hand ) Right lower extremity: normal to inspection, full ROM (ROM limited due to recent surgical intervention ) and knee Details: tenderness (diffuse, mild ), swelling (diffuse, mild ) Location: of the patella, abnormal ROM (limited due to recent surgical intervention ) Details: pain with active ROM during Details: in extension and in flexion and pain with passive ROM during Details: in extension and in flexion; able to extend lower leg actively and ecchymosis (mild surrounding incision ) Left lower extremity: normal to inspection, ankle (weakness ) and foot (weakness ) Other: History of left sided weakness s/p stroke. Minimal use of LUE due to stroke history. Psych: Mental Status: mental status grossly normal Affect: Anxious affect present (anxious about discharge home ) Thought content: Yes Normal thought content present Discharge Plan Discharge Attending physi
== END 2019-12-20 14:50 | disposition home health service (06) ==
LOC: ANHSURGERY 14:55 → ANH2MED 14:55
PROVIDERS: Admitting Provider Orthopaedic Surgery; PCP Internal Medicine; Visit Provider Orthopaedic Surgery
PROC: (CPT 27447; principal; 2019-12-17 11:30)
DX: M17.11 Unilateral primary osteoarthritis, right knee (principal); R11.0 Nausea; G89.18 Other acute postprocedural pain; I69.354 Hemiplegia and hemiparesis following cerebral infarction affecting left non-dominant side; I10 Essential (primary) hypertension; E66.9 Obesity, unspecified; Z68.38 Body mass index [BMI] 38.0-38.9, adult
CPT/HCPCS: 27447; 64447; 36415; 73560; 80048; 80307; 81003; 82040; 82565; 83036; 85025; 85027; 85610; 85730; 86850; 86900; 86901; 87081; 93005; 97110; 97116; 97161; 97165; 97530; 97535; A9270; C1713; C1776; G0378; J0171; J0690; J1100; J1170; J1885; J2250; J2270; J2370; J2405; J2550; J2704; J2795; J3010; J7030; J7120

== ENCOUNTER 2020-01-26 22:19 | Emergency (ER) | payer MEDICARE, SELFPAY ==
[2020-01-26] VITALS (8 sets, daily range): BP systolic 130–148; BP diastolic 93–103; PULSE 91–115; RESP 14–21; TEMP 36.2; O2SAT 96–100
[2020-01-26] MEDS: methylPREDNISolone SOD SUCC 125 MG VIAL IV PUSH (22:55)
[2020-01-26] MEDS: FAMOTIDINE 20 MG/2 ML VIAL IV PUSH (22:55)
[2020-01-26] MEDS: diphenhydrAMINE HCl INJ 50 MG/ML VIAL IV PUSH (22:55)
--- NOTE | 2020-01-26 23:54 | ED.ALLEREA ---
HPI - Allergic Reaction General Chief complaint: Allergic Reaction Stated complaint: Lip swelling Time Seen by Provider: 01/26/20 22:42 History of Present Illness HPI narrative: Patient a 55-year-old female who presents emergency department with chief complaint of angioedema. Patient reports she has history of hypertension and takes lisinopril x3 patient reports this evening she noticed that her lips started swelling and had significant pain of her upper lip. The patient denies shortness of breath denies tongue swelling reports that she has not had this happen before in the past. Patient denies urticaria denies itching. The patient reports the symptoms are not worsened by anything nor are they improved by anything Related Data Home Medications Medication Instructions Recorded Confirmed lisinopril 20 mg PO HS 04/06/19 01/06/20 cholecalciferol (vitamin D3) 125 mcg PO HS 12/09/19 01/06/20 Allergies Allergy/AdvReac Type Severity Reaction Status Date / Time meperidine Allergy Severe Rash Verified 01/26/20 22:39 paroxetine AdvReac Mild Hallucinati Verified 01/26/20 22:39 ng ADAPTIC GAUZE Allergy Severe RASH Uncoded 01/06/20 10:16 ANTIBACTERIAL SOAP Allergy Severe RASH Uncoded 01/06/20 10:16 adaptic Allergy Unknown Unknown Uncoded 01/06/20 10:16 antibacterial Allergy Unknown Unknown Uncoded 01/06/20 10:16 Review of Systems Review of Systems: Narrative: CONSTITUTIONAL: Denies fever, chills, or sweats. EYES: Denies visual changes, redness, or discharge. ENT: Denies rhinorrhea, congestion, sore throat, or otalgia. CARDIOVASCULAR: Denies chest pain, palpitations, or edema. RESPIRATORY: Denies cough or dyspnea. GASTROINTESTINAL: Denies abdominal pain, nausea, vomiting, or diarrhea. GENITOURINARY: Denies dysuria or hematuria. SKIN: Denies rash or itching. MUSCULOSKELETAL: Denies back pain, joint pain, or myalgia. NEUROLOGIC: Denies headache, numbness, or weakness. PSYCHIATRIC: Denies anxiety or depression. A 10 system review of systems was completed on the patient and is negative except for what is stated in the HPI. Nursing and ancillary documentation was reviewed. [facility] Past Medical History Medical History Chondromalacia patellae of right knee CVA (cerebral vascular accident) HTN (hypertension) Nausea Obesity Primary osteoarthritis of right knee Traumatic arthritis of left ankle Surgical History Surgical History H/O knee surgery Status post ankle arthrodesis Status post total knee replacement Family History Family History Other Diabetes mellitus Family history of alcoholism Family history of cardiovascular disease Family history of malignant neoplasm Family history of osteoarthritis Family history of transient ischemic attacks Social History Social History Smoking status: Never smoker Second hand tobacco smoke exposure: No Additional smoking assessment comments: DENIES ANY FORM OF TOBACCO/NICOTINE USE Alcohol intake: never Substance use: never Gender identity (if verbalized by the patient): Female Spiritual care concerns: No Exam Narrative: Exam Narrative: GENERAL: Well-appearing, well-nourished, and in no acute distress. HEAD: Normocephalic, atraumatic. EYES: PERRLA and EOMI. ENT: Nares clear, no rhinorrhea or epistaxis. Mucous membranes moist. There is angioedema of the upper lip there is no angioedema in the oral pharynx tongue is normal size the patient has normal speech uvula is normal size and midline NECK: Supple. CHEST: Clear to auscultation. No respiratory distress. HEART: Regular rate and rhythm. No murmur heard. Normal peripheral pulses. ABDOMEN: Soft, nontender, nondistended, normal active bowel sounds. EXTREMITIES: Normal ra
[2020-01-27 00:47] VITALS: BP 132/77; PULSE 84; RESP 20; TEMP 36.6; O2SAT 98
[2020-01-27 01:17] VITALS: BP 130/95; PULSE 87; RESP 20; O2SAT 97
== END 2020-01-27 01:20 | disposition home or self-care (01) ==
PROVIDERS: Emergency Provider Emergency Medicine; PCP Internal Medicine
DX: T78.3XXA Angioneurotic edema, initial encounter (principal); Z86.73 Personal history of transient ischemic attack (TIA), and cerebral infarction without residual deficits; I10 Essential (primary) hypertension; M17.11 Unilateral primary osteoarthritis, right knee; E66.9 Obesity, unspecified; Z68.35 Body mass index [BMI] 35.0-35.9, adult; Z96.659 Presence of unspecified artificial knee joint
CPT/HCPCS: 96374; 96375; 99284; J1200; J2930

== ENCOUNTER 2020-01-27 22:28 | Emergency (ER) | payer MEDICARE, SELFPAY ==
[2020-01-27 22:37] VITALS: BP 151/119; PULSE 120; RESP 24; TEMP 37.7; O2SAT 98
--- NOTE | 2020-01-27 23:05 | ED.ALLEREA ---
HPI - Allergic Reaction General Chief complaint: Allergic Reaction Stated complaint: ALLERGIC REACTION Time Seen by Provider: 01/27/20 22:50 Source: patient Mode of arrival: ambulatory Limitations: no limitations History of Present Illness HPI narrative: Patient is a 55-year-old female complaining of lower lip swelling that started tonight. Patient states she had a similar episode last night came to the ER was given medications and eventually subsided, but symptoms recurred again tonight. Patient was told to stop her lisinopril last night which she did. She denies any tongue, throat, or facial swelling. Patient denies any extremity swelling or rash. Patient denies any chest pain or shortness of breath. Patient denies using any new personal hygiene products, medications or food. Related Data Home Medications Medication Instructions Recorded Confirmed lisinopril 20 mg PO HS 04/06/19 01/06/20 cholecalciferol (vitamin D3) 125 mcg PO HS 12/09/19 01/06/20 Allergies Allergy/AdvReac Type Severity Reaction Status Date / Time meperidine Allergy Severe Rash Verified 01/26/20 22:39 paroxetine AdvReac Mild Hallucinati Verified 01/26/20 22:39 ng ADAPTIC GAUZE Allergy Severe RASH Uncoded 01/06/20 10:16 ANTIBACTERIAL SOAP Allergy Severe RASH Uncoded 01/06/20 10:16 adaptic Allergy Unknown Unknown Uncoded 01/06/20 10:16 antibacterial Allergy Unknown Unknown Uncoded 01/06/20 10:16 Review of Systems Review of Systems: All systems reviewed & are unremarkable except as noted in HPI and below Constitutional: Constitutional: Denies body ache(s), Denies chills, Denies excessive sweating, Denies fatigue, Denies fever(s), Denies headache(s), Denies lethargy, Denies malaise, Denies weakness and Denies weight loss Eyes: Eyes: Denies blurry vision, Denies change in vision and Denies loss of vision ENT: Denies dizziness, Denies ear discharge, Denies headache(s), Denies epistaxis, Denies nasal congestion, Denies neck pain, Denies throat swelling and Denies tongue swelling Cardiovascular: Cardiovascular: Denies chest pain, Denies chest pain at rest, Denies chest pain with activity, Denies diaphoresis, Denies rapid heart rate, Denies edema, Denies irregular heart rhythm, Denies lightheadedness, Denies palpitations, Denies dyspnea and Denies dyspnea on exertion Respiratory: Respiratory: Denies chest congestion, Denies cough, Denies hemoptysis, Denies dyspnea and Denies dyspnea on exertion Gastrointestinal: Gastrointestinal: Denies abdominal pain, Denies melena, Denies hematochezia, Denies diarrhea, Denies nausea, Denies vomiting and Denies hematemesis Musculoskeletal: Musculoskeletal: Denies abnormal gait, Denies deformity, Denies joint swelling, Denies limited range of motion, Denies neck pain and Denies numbness Neurologic: Denies Abnormal speech present, Denies abnormal gait, Denies confusion, Denies dizziness, Denies headache(s), Denies focal weakness, Denies loss of vision, Denies numbness, Denies Other visual disturbances, Denies Sensory deficit (Neuro) and Denies weakness Psychiatric: Psychiatric: Denies confusion, Denies depression, Denies auditory hallucinations, Denies homicidal ideation and Denies suicidal ideation Endocrine: Endocrine: Denies cold intolerance, Denies excessive sweating, Denies fatigue, Denies heat intolerance and Denies palpitations Hematologic/Lymphatic: Hematologic/Lymphatic: Denies easy bleeding and Denies easy bruising Allergic/Immunologic: Allergic/Immunologic: Denies lip swelling, Denies throat swelling and Denies tongue swelling PMF[facility] Past Medical History Medical History Chondromalacia patellae of right knee CVA (cerebral vascular accident) HTN (hypertension) Nausea Obesity Primary osteoarthritis of right knee Traumatic arthritis of left ankle Surgical History Surgical History H/O knee ortiz
[2020-01-27] MEDS: methylPREDNISolone SOD SUCC 125 MG VIAL IV PUSH (23:08)
[2020-01-27] MEDS: FAMOTIDINE 20 MG/2 ML VIAL IV PUSH (23:08)
[2020-01-27] MEDS: diphenhydrAMINE HCl INJ 50 MG/ML VIAL IV PUSH (23:08)
[2020-01-27 23:56] VITALS: BP 149/92; PULSE 99; RESP 20; O2SAT 98
== END 2020-01-27 23:59 | disposition home or self-care (01) ==
PROVIDERS: Emergency Provider Emergency Medicine; PCP Internal Medicine
DX: T78.3XXA Angioneurotic edema, initial encounter (principal); I10 Essential (primary) hypertension; M17.11 Unilateral primary osteoarthritis, right knee; Z86.73 Personal history of transient ischemic attack (TIA), and cerebral infarction without residual deficits; E66.9 Obesity, unspecified; Z68.35 Body mass index [BMI] 35.0-35.9, adult; Z96.659 Presence of unspecified artificial knee joint
CPT/HCPCS: 96374; 96375; 99284; J1200; J2930

== ENCOUNTER 2020-03-05 09:49 | Emergency (ER) | payer MEDICARE, SELFPAY ==
[2020-03-05] VITALS (8 sets, daily range): BP systolic 114–154; BP diastolic 64–95; PULSE 72–87; RESP 14–20; TEMP 36.9; O2SAT 93–100
--- NOTE | 2020-03-05 10:09 | ECG_ITS ---
Measurements Intervals [place] Rate: 76 P: 34 CT: 185 QRS: -21 QRSD: 153 T: 107 QT: 406 QTc: 457 Interpretive Statements SINUS RHYTHM LEFT BUNDLE BRANCH BLOCK BASELINE ARTIFACT- I, II, III, AVR, AVL, AVF, V1 ABNORMAL ECG Electronically Signed On 03-05-2020 10:26:06 [facility] by Marco A Bliss D.O.
--- NOTE | 2020-03-05 10:11 | ED.SYNCOPE ---
HPI - Syncope General Chief Complaint: Dizziness Stated Complaint: NEAR SYNCOPE Time Seen by Provider: 03/05/20 09:56 History of Present Illness HPI narrative: 55 yo female with h/o htn, CVA presents to the ED for dizziness. She is currently in physical therapy after a right knee replacement. Today while at physical therapy she became dizzy and nauseated. The dizziness is described as light headedness. She did not lose consciousness. She is feeling better now that she is lying down, not fully back to normal. No CP, SOB, vomiting, LOC, fever. Related Data Home Medications Medication Instructions Recorded Confirmed lisinopril 20 mg PO HS 04/06/19 01/06/20 cholecalciferol (vitamin D3) 125 mcg PO HS 12/09/19 01/06/20 Allergies Allergy/AdvReac Type Severity Reaction Status Date / Time meperidine Allergy Severe Rash Verified 01/26/20 22:39 lisinopril Allergy Anaphylaxis Verified 03/05/20 10:08 paroxetine AdvReac Mild Hallucinati Verified 01/26/20 22:39 ng ADAPTIC GAUZE Allergy Severe RASH Uncoded 01/06/20 10:16 ANTIBACTERIAL SOAP Allergy Severe RASH Uncoded 01/06/20 10:16 adaptic Allergy Unknown Unknown Uncoded 01/06/20 10:16 antibacterial Allergy Unknown Unknown Uncoded 01/06/20 10:16 Review of Systems Review of Systems: All systems reviewed & are unremarkable except as noted in HPI and below Constitutional: Constitutional: Denies fever(s) and Denies weakness Eyes: Eyes: Denies change in vision Cardiovascular: Cardiovascular: Denies chest pain Respiratory: Respiratory: Denies dyspnea Gastrointestinal: Gastrointestinal: Denies abdominal pain, Denies constipation, Denies diarrhea, Reports nausea and Denies vomiting Genitourinary: Genitourinary: Denies dysuria Musculoskeletal: Musculoskeletal: Denies back pain Neurologic: Denies confusion, Reports dizziness, Denies syncope and Denies weakness [facility] Past Medical History Medical History Chondromalacia patellae of right knee CVA (cerebral vascular accident) HTN (hypertension) Nausea Obesity Primary osteoarthritis of right knee Traumatic arthritis of left ankle Surgical History Surgical History H/O knee surgery Status post ankle arthrodesis Status post total knee replacement Family History Family History Other Diabetes mellitus Family history of alcoholism Family history of cardiovascular disease Family history of malignant neoplasm Family history of osteoarthritis Family history of transient ischemic attacks Social History Social History Smoking status: Never smoker Second hand tobacco smoke exposure: No Additional smoking assessment comments: DENIES ANY FORM OF TOBACCO/NICOTINE USE Alcohol intake: never Substance use: never Gender identity (if verbalized by the patient): Female Spiritual care concerns: No Exam Const: General: no acute distress and alert Orientation/consciousness: patient oriented x3 HENMT: Head: normal to inspection Eyes: Pupils: Equal, round and reactive pupils present EOM: EOMs intact bilaterally Resp: Effort & Inspection: normal respiratory effort Auscultation: clear to auscultation bilaterally Cardio: Rate: regular rate Rhythm: regular rhythm Skin: General skin exam: normal color Neuro: General: patient oriented x3, moves all extremities, no focal motor deficits and CN's II-XI intact bilaterally Cranial nerves: Yes Nystagmus not present Speech: normal speech Extrem: Other: Swelling and tenderness to right knee. No significant calf pain or swelling. Course Vital Signs Vital signs: Vital Signs Pulse Rate 77 03/05/20 09:54 Temperature 36.9 C 03/05/20 10:05 Pulse Rate 73 03/05/20 14:03 Respiratory Rate 14 03/05/20 14:03 Blood Pressure 154/95
[2020-03-05 10:36] LABS: Basophils Percent Auto 0.2 % (0.2-1.2); Eosinophils Percent Auto 0.6 % (0-4.4); Hematocrit 37.7 % (37.0-47.0); Hemoglobin 12.7 g/dL (12.0-15.0); Immature Granulocyte Absolute 0.01 K/mm3 (0.00-0.031); Immature Granulocyte Percent A 0.2 % (0-0.5); Lymphocytes Absolute Auto 1.11 K/mm3 (0.9-3.2); Lymphocytes Percent Auto 22.3 % (18.3-44.2); Mean Corpuscular HGB Conc 33.7 g/dl (32-36); Mean Corpuscular Hemoglobin 30.3 pg (26-34); Mean Platelet Volume 11.1 fl (7.4-10.4); Monocytes Percent Auto 19.5 % (2.6-8.5); Neutrophils Absolute Auto 2.8 K/mm3 (1.3-6.7); Neutrophils Percent Auto 57.2 % (45.5-73.1); Platelet Count Result 153 k/mm3 (150-375); Red Blood Count 4.19 M/mm3 (4.2-5.4); Red Cell Distribution Width 13.2 % (11.5-14.5)
[2020-03-05 10:46] LABS: Anion Gap 7 mmol/L (8-16); Blood Urea Nitrogen 14 mg/dL (7-17); Calcium 8.5 mg/dL (8.4-10.2); Carbon Dioxide 25 mmol/L (22-30); Chloride 105 mmol/L (98-107); Estimated CRCL calculation 74 ml/min; Estimated Glomerular Filt Rate > 60; Glucose 106 mg/dL (65-105); Potassium 3.8 mmol/L (3.4-5.0); Sodium 137 mmol/L (137-145)
[2020-03-05] MEDS: SODIUM CHLORIDE 0.9% IV 1,000 ML 999 ML IV CONT (12:49)
== END 2020-03-05 14:39 | disposition home or self-care (01) ==
PROVIDERS: Emergency Provider Emergency Medicine; PCP Internal Medicine
DX: R55 Syncope and collapse (principal); I10 Essential (primary) hypertension; Z96.651 Presence of right artificial knee joint; Z86.73 Personal history of transient ischemic attack (TIA), and cerebral infarction without residual deficits; M17.11 Unilateral primary osteoarthritis, right knee; E66.9 Obesity, unspecified; Z68.35 Body mass index [BMI] 35.0-35.9, adult; I44.7 Left bundle-branch block, unspecified
CPT/HCPCS: 36415; 80048; 85025; 93005; 99283; J7030

== ENCOUNTER 2020-04-17 11:00 | Outpatient (RCR) | payer MEDICARE, SELFPAY ==
--- NOTE | 2020-01-27 11:47 | PTOPEVAL ---
PHYSICAL THERAPY EVALUATION Thank you for referring Olivia Sullivan to [facility].? Olivia was evaluated for the dx of right TKA. The patient is scheduled to be seen for therapy? 2 x/week for 4 weeks. Please review, sign, date and return this plan of care KAI. I agree with and certify that the following plan of care is medically necessary. Referring Physician Date Attending Provider: Miguel Murphy MD *PT Outpatient Evaluation Start: 01/27/20 10:30 Freq: Status: Active Protocol: Document 01/27/20 10:34 MLV (Rec: 01/27/20 11:39 [facility] [id number]) Assessment Status Evaluation Evaluation Information Problem Diagnosis right knee DJD with TKA Onset 12/17/19 Cause OA Additional Evaluation Detail Patient has had trouble with her left side since the CVA when she was 10. The patient's left ankle is fused after 28 surgeries. 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 Subjective Information Patient had therapy for 3 Query Text:As Reported By Patient/ weeks at home, after surgery Family and has been doing exercises on her own since then. The patient saw MD, and wanted her to continue skilled therapy. Patient has pain with moving the knee and having trouble sleeping. 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 walking Hand Dominance Right Cooking Yes Cleaning Yes Laundry Yes Shopping Yes Driving Yes Home Setting Home Type House Environmental Barriers Ramp Living Situation Alone Support Available Local Family Support Mobility Assistive Devices (Used Last 3 Walker, Wheeled Months) Pain Assessment Timing of Pain Assessment Timing of Pain Assessment Assessment Pain Scale Pain Scale Used Numeric (1 - 10) Self Report Pain Assessment Right Knee(s) Reported Pain Level 3 Pain Description Sharp,Throbbing Pain Frequency Acute,Chronic Other Pain Aggravating Factors moving knee Pain Score Pain Score 3: Self Repor
--- NOTE | 2020-02-24 10:11 | PTOPEVAL ---
PHYSICAL THERAPY RE-EVALUATION Thank you for referring Olivia Sullivan to [facility].? The patient was reassessed this date with the dx of right TKA; and the patient is scheduled to be seen for therapy? 2 x/week for 4 weeks. Please review, sign, date and return this plan of care KAI. I agree with and certify that the following plan of care is medically necessary. Referring Physician Date Attending Provider: Miguel Murphy MD *PT Outpatient Evaluation Start: 01/27/20 10:30 Freq: Status: Active Protocol: Document 02/24/20 08:27 MLV (Rec: 02/24/20 09:19 MLV [id number]) Assessment Status Re-Evaluation Re-Evaluation Information Problem Additional Evaluation Detail The patient feels she is better but her knee still has some stiffness. The patient is stretching 2-3x a day. The patient has most pain with sitting to standing. Patient reports she is sleeping ok. Pain Assessment Timing of Pain Assessment Timing of Pain Assessment Assessment Pain Scale Pain Scale Used Numeric (1 - 10) Self Report Pain Assessment Right Knee(s) Reported Pain Level 3 Pain Description Sharp,Tightness Pain Frequency Acute Pain Score Pain Score 3: Self Report Interventions Used Interventions Used By Clinicians Education Pain Relief Interventions Used By Exercise,Heat,Ice,Inactivity/ Patient Rest Lower Extremity Range of Motion General Lower Extremity Range of Motion Reason Not Measured WFL/Left,WFL/Right Limitations Pain,Soft Tissue Restriction Gross Lower Extremity Range of Motion right knee 0-125 degrees Comments active; 0-130 assisted. Pain with knee extension Lower Extremity Muscle Strength Testing General Lower Extremity Strength Gross Lower Extremity Strength right hip 4-/5, knee 4/5, ankle 4/5 * strength endurance improved at right hip and knee; fatigues with 20 reps of mild resisted motion. Pain with resisted knee extension Balance Assessment Time Up Go (TUG) Timed Up and Go Test (TUG) (Seconds) 8 Assistive Devices Walker, Wheeled Comments 10 seconds with a straight cane. 5 Time Sit to Stand Time in Seconds 19 5 Time Sit to Stand Comments speed improved and quality of Query Text:Normative Data: If Greater movement improved; mild Than 15 Seconds, 74% Increase Risk for unsteady at initial stance and Recurrent Fa
--- NOTE | 2020-03-03 09:13 | PCPTNOTE ---
Patient did not show up for scheduled appointment this date. Called and spoke to Olivia, she had down that her appointment was at 9:45, she was very sorry.
--- NOTE | 2020-03-25 11:14 | PTOPEVAL ---
PHYSICAL THERAPY REASSESSMENT Thank you for referring Olivia Sullivan to [facility].? The patient continues to improve and will benefit from further gait/balance training to achieve maximal potential. The patient is scheduled to be seen for therapy? 1 x/week for 3 more weeks. Please review, sign, date and return this plan of care KAI. I agree with and certify that the following plan of care is medically necessary. Referring Physician Date Attending Provider: Miguel Murphy MD *PT Outpatient Evaluation Start: 01/27/20 10:30 Freq: Status: Active Protocol: Document 03/25/20 10:01 [facility] (Rec: 03/25/20 10:55 [facility] [id number]) Assessment Status Re-evaluation Evaluation Information Problem Diagnosis right knee DJD with TKA Additional Evaluation Detail The patient saw the MD Monday and he was pleased with her progress with her right knee motion. The patient sees him again in 3 months. The patient feels more therapy will help her get better with walking so to return to gait with a cane. Pain Assessment Timing of Pain Assessment Timing of Pain Assessment Assessment Pain Scale Pain Scale Used Numeric (1 - 10) Self Report Pain Assessment Right Knee(s) Reported Pain Level 2 Pain Description Aching Other Pain Description pain only with sit to stand Pain Score Pain Score 2: Self Report Interventions Used Interventions Used By Clinicians Exercise Pain Relief Interventions Used By Exercise,Medication,Position Patient Change Other Alleviating Interventions tylenol prn Lower Extremity Range of Motion General Lower Extremity Range of Motion Gross Lower Extremity Range of Motion right knee 0-126 degrees Comments active; 0-130 assisted. Pain with knee extension Lower Extremity Muscle Strength Testing General Lower Extremity Strength Gross Lower Extremity Strength right hip 4-/5, knee 4/5, ankle 4/5 * strength endurance improved at right hip and knee; fatigues with 20 reps of mild resisted motion. Pain with resisted knee extension Balance Assessment Time Up Go (TUG) Timed Up and Go Test (TUG) (Seconds) 6 Assistive Devices Walker, Wheeled Comments with cane: 8 seconds (both improved) 5 Time Sit to Stand Time in Seconds 15 5 Time Sit to Stand Comments improved Query Diomedes
--- NOTE | 2020-04-15 13:38 | PCPTNOTE ---
Patient called & cancelled scheduled appointment this date due to weather. Rescheduled.
--- NOTE | 2020-04-17 11:51 | PTOPEVAL ---
PHYSICAL THERAPY DISCHARGE SUMMARY Thank you for referring Olivia Sullivan to [facility].? The patient has been seen 18 visits for the dx of right TKA and status has peaked. Goals are met or partially met and peaked. D/C PT at this time. Please review, sign, date and return this plan of care. I agree with and certify the following plan of care. Referring Physician Date Attending Provider: Miguel Murphy MD *PT Outpatient Discharge Start: 01/27/20 10:30 Freq: Protocol: Document 04/17/20 11:04 [facility] (Rec: 04/17/20 11:46 [facility] [id number]) Assessment Status Discharge Evaluation Information Problem Diagnosis right knee TKA Additional Evaluation Detail Patient reports she had been feeling well until the last 5 days/ the patient has had an increase in knee pain that is constant. The pain has been at a 5/10 during the day and worse at night- affecting her sleep. Patient agrees that working on gait with a cane for mobility outside of her home, is not safe at this time . The patient doesn't have trouble with her home exercises and is compliant despite her pain. Pain Assessment Timing of Pain Assessment Timing of Pain Assessment Assessment Pain Scale Pain Scale Used Numeric (1 - 10) Self Report Pain Assessment Right Knee(s) Reported Pain Level 5 Pain Frequency Acute,Chronic Greatest Pain Intensity 7 Other Pain Aggravating Factors sleeping Pain Score Pain Score 5: Self Report Interventions Used Interventions Used By Clinicians Education,Exercise Pain Relief Interventions Used By Heat,Ice,Position Change Patient Lower Extremity Range of Motion General Lower Extremity Range of Motion Reason Not Measured WFL/Left Limitations Pain Gross Lower Extremity Range of Motion right knee 0-126 degrees Comments active. Pain with knee extension Lower Extremity Muscle Strength Testing General Lower Extremity Strength Gross Lower Extremity Strength right hip 4/5, knee 5/5, ankle 5/5 (improved) * strength endurance improved at right hip and knee; fatigues with 20-25 reps of mild resisted motion. Pain with resi
== END 2020-04-17 15:02 | disposition home or self-care (01) ==
LOC: ANHPT 11:00
PROVIDERS: PCP Internal Medicine; Visit Provider Orthopaedic Surgery
DX: Z47.1 Aftercare following joint replacement surgery (principal); Z96.651 Presence of right artificial knee joint
CPT/HCPCS: 97014; 97035; 97110; 97116; 97140; 97161; 97530; G0283

== ENCOUNTER → 2021-03-09 01:04 | Outpatient (CLI) | payer MEDICARE, SELFPAY ==
[2021-03-09 21:02] LABS: SARS-CoV-2 RNA PCR Negative
== END ==
PROVIDERS: PCP Internal Medicine; Visit Provider Internal Medicine
DX: R09.81 Nasal congestion (principal); R05.9 Cough, unspecified; Z20.822 Contact with and (suspected) exposure to COVID-19
CPT/HCPCS: C9803; U0003; U0005

== ENCOUNTER 2021-05-26 11:14 | Outpatient (CLI) | payer MEDICARE, SELFPAY ==
--- NOTE | 2021-05-26 11:17 | ECG_ITS ---
Measurements Intervals [place] Rate: 74 P: 1 OH: 178 QRS: -31 QRSD: 162 T: 133 QT: 404 QTc: 449 Interpretive Statements SINUS RHYTHM LEFT BUNDLE BRANCH BLOCK [120+ ms QRS DURATION, 80+ ms Q/S IN V1/V2, 85+ ms R IN I/aVL/V5/V6] ABNORMAL ECG COMPARED TO ECG 03/05/2020 10:02:26 NO SIGNIFICANT CHANGES Electronically Signed On 05-26-2021 13:43:36 CDT by Demond Tomlinson M.D.
[2021-05-26 11:48] LABS: Anion Gap 9 mmol/L (8-16); Blood Urea Nitrogen 21 mg/dL (7-17); Calcium 9.1 mg/dL (8.4-10.2); Carbon Dioxide 25 mmol/L (22-30); Chloride 102 mmol/L (98-107); Estimated Glomerular Filt Rate > 60; Glucose 112 mg/dL (65-110); Potassium 3.9 mmol/L (3.4-5.0); Sodium 136 mmol/L (137-145)
== END 2021-05-26 11:15 | disposition home or self-care (01) ==
LOC: ANHSURGERY 11:15
PROVIDERS: Anesthesiology; PCP Internal Medicine; Visit Provider Orthopaedic Surgery
DX: I10 Essential (primary) hypertension (principal); Z79.899 Other long term (current) drug therapy; Z01.818 Encounter for other preprocedural examination; I44.7 Left bundle-branch block, unspecified
CPT/HCPCS: 36415; 80048; 93005

== ENCOUNTER 2021-06-01 00:06 | Day surgery (SDC) | payer MEDICARE, SELFPAY ==
[2021-05-25 11:18] VITALS: BMI 37.9
--- NOTE | 2021-05-25 11:34 | PC.NURSE ---
Report to the Outpatient Waiting Room, entrance under the green pavilion located off [facility], at time 12:00 on date 06/01/21. OR Time: 2:00. - You and your visitor will be asked a series of questions to screen for COVID 19 for your protection. - A mask is required within the hospital. One visitor will be allowed to accompany the patient into the hospital. Patients visitor will be instructed to remain with patient at all times or leave the building. We will allow the visitor to come back to the postoperative area when patient is ready. Preoperative COVID Testing Requirements: No COVID Test needed if: (proof is required; if not received patient will have Rapid Test prior to entry) - Patient has received COVID Vaccine at least 14 days prior to procedure date or - Patient has positive COVID test result within last 90 days of surgery date. COVID Test needed if above criteria is not met Patients may have clear liquids (water, carbonated beverages, clear teas, apple juice) until 3 hours prior to surgery (11:00) with a maximum of 20 ounces. - No food from midnight until time of surgery Take the following medications with a SIP of water the morning of surgery: METOPROLOL Medications to discontinue per physician: VITAMIN Date to take last dose: 05/28/21 STOPPED ASPIRIN AFTER DOSE 05/24 AM Please no make-up, nail urdu, hairspray, perfume, deodorant, or body powder the day of surgery. No jewelry (including any body piercings) or valuables the day of surgery, leave them at home. Please take a shower or bath the night before, or the morning of, surgery with an antibacterial soap. Wear comfortable, loose fitting clothing. - Jewelry must be removed prior to entering the operating room. Rings and piercings that are not removed may be cut off. - The hospital will not accept responsibility for valuables. - Please leave all valuables, including medications, at home the day of surgery. If you are going home after surgery, a licensed drivers license examiner must drive you home. - NO public transportation without another adult. - We recommend that an adult stay with you for 24 hours following discharge. - We also recommend that you do not drive, make important decision, drink alcoholic beverages, or take any drugs that were not prescribed by your health care provider for at least 24 hours after your discharge time. Follow any additional instructions given to you from your surgeon. Telephone instructions given to GYPSY GRIMES and asked if any additional questions and then verbalized understanding. Patient advised to call surgeon office or pre surgery nurse liaison [phone] if any additional questions.
[2021-06-01] VITALS (7 sets, daily range): BP systolic 116–149; BP diastolic 59–100; PULSE 60–89; RESP 14–18; TEMP 36.4–37.3; O2SAT 95–100
--- NOTE | 2021-06-01 07:22 | WPDHPUPDATE1 ---
History and Physical Update Update Date/Time: 06/01/21 07:22 History and Physical has been reviewed, including an updated exam of the patient. There are NO changes in the patient's condition. Risks, benefits, and alternatives have been discussed and questions answered. Patient agrees to proceed with procedure.
[2021-06-01] MEDS: ACETAMINOPHEN 500 MG TABLET 1000 MG PO (12:18)
[2021-06-01] MEDS: CELECOXIB 200 MG CAPSULE PO (12:18)
--- NOTE | 2021-06-01 12:27 | WPDANESEPPF ---
Anes - Initial Pre Proc Eval Procedure: Operation Date: 06/01/21 14:00 Proposed Procedures p Right Carpal Tunnel Release - Miguel Murphy MD Date/Time: 06/01/21 12:27 Surgeon: Miguel Murphy MD Pre Op Diagnosis: Right Carpal Syndrome Patient Data Age: 56 Gender: F Height: 1.68 m Weight: 108 kg Last Vital Signs Temp 37.3 C 06/01/21 12:15 Pulse 74 06/01/21 12:15 Resp 18 06/01/21 12:15 BP 143/100 H 06/01/21 12:15 Pulse Ox 97 06/01/21 12:15 Allergies Allergy/AdvReac Type Severity Reaction Status Date / Time lisinopril Allergy Severe Anaphylaxis Verified 06/01/21 12:00 meperidine Allergy Severe Rash Verified 06/01/21 12:00 paroxetine AdvReac Mild Hallucinati Verified 06/01/21 12:00 ng ADAPTIC GAUZE Allergy Severe RASH Uncoded 06/01/21 12:00 ANTIBACTERIAL SOAP Allergy Severe RASH Uncoded 06/01/21 12:00 Home Medications Medication Instructions Recorded Confirmed Type cholecalciferol (vitamin D3) 125 mcg PO HS 12/09/19 06/01/21 History hydrochlorothiazide 25 mg PO DAILY #30 tablet 01/26/20 06/01/21 Rx aspirin [Baby Aspirin] 81 mg PO DAILY 05/25/21 06/01/21 History metoprolol succinate 25 mg PO BID 05/25/21 06/01/21 History Patient hx anesthesia problems: none Family hx anesthesia problems: none Results Review: All pre-operative results and documents have been reviewed as part of the pre-operative evaluation. [facility] Past Medical History Medical History Chondromalacia patellae of right knee CVA (cerebral vascular accident) HTN (hypertension) Nausea Obesity Primary osteoarthritis of right knee Right knee pain Traumatic arthritis of left ankle Surgical History Surgical History H/O knee surgery Status post ankle arthrodesis Status post total knee replacement Family History Family History Other Diabetes mellitus Family history of alcoholism Family history of cardiovascular disease Family history of malignant neoplasm Family history of osteoarthritis Family history of transient ischemic attacks Social History Social History Smoking status: Never smoker Second hand tobacco smoke exposure: No Additional smoking assessment comments: DENIES ANY FORM OF TOBACCO/NICOTINE USE Alcohol intake: never Substance use: never Substance use type: does not use Living arrangements: alone Gender identity (if verbalized by the patient): Female Spiritual care concerns: No Anes - Eval Final PreProcedure Day of Procedure 06/01/21 12:27 Patient weight: obese Heart: regular rate and rhythm Lungs: clear to auscultation Airway: Mallampati scale Neurological: alert and oriented Last oral intake: >/= 8 hours ASA classification: III Emergent: no Anesthetic plan: proceed Anesthesia type and monitoring: general LMA and standard monitoring Results Review: All pre-operative results and documents have been reviewed as part of the pre-operative evaluation. Informed Consent: The patient's anesthetic plan and its attendant risks and benefits were discussed with the patient/family/POA. Questions were solicited and answers provided to the satisfaction of the patient/family/POA.
[2021-06-01] MEDS: LACTATED RINGERS 1,000 ML 30 ML IV CONT (12:32)
--- NOTE | 2021-06-01 14:10 | PM.CNOR ---
Assessment and Plan Assessment and plan (1) CTS (carpal tunnel syndrome): Qualifiers: Laterality: right Qualified Code(s): G56.01 - Carpal tunnel syndrome, right upper limb Code(s): G56.00 - Carpal tunnel syndrome, unspecified upper limb Status: Acute Assessment and Plan: 56 YO FEMALE WITH HX OF RIGHT HAND CARPAL TUNNEL SYNDROME REFRACTIVE TO CONSERVATIVE TREATMENT. SHE IS HERE FOR RIGHT CARPAL TUNNEL RELEASE. DISCUSSED NONOPERATIVE AND OPERATIVE TREATMENT OPTIONS WITH THE PATIENT. THE PATIENT'S QUESTIONS WERE ANSWERED. THE PATIENT DESIRES OPERATIVE TREATMENT. RISKS OF SURGERY INCLUDING BUT NOT LIMITED TO NEUROVASCULAR DAMAGE, WOUND COMPLICATIONS, BLOOD CLOT, PULMONARY EMBOLUS, STROKE, NV, ANESTHETIC RISKS UP TO AND INCLUDING WERE REVIEWED. CONTINUED PAIN AND POSSIBLE DYSFUNCTION WERE EXPLAINED. NO GUARANTEES WERE OFFERED. THE PATIENT UNDERSTANDS AND WISHES TO PROCEED. History of Present Illness HPI Consult date: 06/01/21 Chief complaint: Right Carpal Syndrome Narrative: RIGHT HAND NUMBNESS AND TINGLING CONSISTENT WITH RIGHT CARPAL TUNNEL SYNDROME. SHE IS HERE FOR RIGHT CARPAL TUNNEL RELEASE. Review of Systems Review of Systems: All systems reviewed & are unremarkable except as noted in HPI and below Eyes: Eyes: Reports no additional eye complaints Cardiovascular: Cardiovascular: Reports no additional cardiovascular complaints Respiratory: Respiratory: Reports no additional respiratory complaints Gastrointestinal: Gastrointestinal: Reports no additional gastrointestinal complaints Genitourinary: Genitourinary: Reports no additional female genitourinary complaints PMFSH Past Medical History Medical History Chondromalacia patellae of right knee CVA (cerebral vascular accident) HTN (hypertension) Nausea Obesity Primary osteoarthritis of right knee Right knee pain Traumatic arthritis of left ankle Surgical History Surgical History H/O knee surgery Status post ankle arthrodesis Status post total knee replacement Family History Family History Other Diabetes mellitus Family history of alcoholism Family history of cardiovascular disease Family history of malignant neoplasm Family history of osteoarthritis Family history of transient ischemic attacks Social History Social History Smoking status: Never smoker Second hand tobacco smoke exposure: No Additional smoking assessment comments: DENIES ANY FORM OF TOBACCO/NICOTINE USE Alcohol intake: never Substance use: never Substance use type: does not use Living arrangements: alone Gender identity (if verbalized by the patient): Female Spiritual care concerns: No Meds Home Medications and Allergies Home Medications Medication Instructions Recorded Confirmed Type cholecalciferol (vitamin D3) 125 mcg PO HS 12/09/19 06/01/21 History hydrochlorothiazide 25 mg PO DAILY #30 tablet 01/26/20 06/01/21 Rx aspirin [Baby Aspirin] 81 mg PO DAILY 05/25/21 06/01/21 History metoprolol succinate 25 mg PO BID 05/25/21 06/01/21 History Allergies Allergy/AdvReac Type Severity Reaction Status Date / Time lisinopril Allergy Severe Anaphylaxis Verified 06/01/21 12:00 meperidine Allergy Severe Rash Verified 06/01/21 12:00 paroxetine AdvReac Mild Hallucinati Verified 06/01/21 12:00 ng ADAPTIC GAUZE Allergy Severe RASH Uncoded 06/01/21 12:00 ANTIBACTERIAL SOAP Allergy Severe RASH Uncoded 06/01/21 12:00 Vital Signs Vital Signs - 24 hr 06/01/21 12:15 Temperature 37.3 C Pulse Rate 74 Respiratory Rate 18 Blood Pressure 143/100 H Pulse Oximetry 97 Exam Extrem: Right upper extremity: normal to inspection, full ROM, normal capillary refill, elbow/forearm normal to inspection, normal ROM
[2021-06-01] MEDS: ceFAZolin 2 GM/D5W 50 ML 2 GM/50 ML BAG IVPB (14:23)
[2021-06-01] MEDS: BUPIVACAINE HCL 0.5% PF 30 ML VIAL 10 ML INFILTRATE (14:46)
--- NOTE | 2021-06-01 15:05 | W.PM.PROC2 ---
Procedure Note - Detailed Date of Procedure 06/01/21 Pre-op Diagnosis Right Carpal Syndrome Post-op Diagnosis Same Procedure Performed RIGHT CTR Surgeon Miguel Murphy MD Anesthesia General Description of Procedure THE RIGHT UPPER EXTREMITY WAS PREPPED AND DRAPED IN THE STERILE FASHION. THE CARPAL TUNNEL WAS MARKED FROM THE FLEXED RING FINGER. THE TOURNIQUET WAS INFLATED. THE INCISION WAS MADE AT THE MID PALM DOWN THROUGH THE SUBCUTANEOUS TISSUES. THE PALMAR FASCIA WAS IDENTIFIED. AN INCISION WAS MADE THROUGH THE PALMAR FASCIA UNTIL THE CARPAL TUNNEL WAS ENTERED. A MOSQUITO HEMOSTAT WAS USED TO PROTECT THE MEDIAN NERVE WHILE THE INCISION TO THE PALMAR FASCIA WAS COMPLETE PROXIMALLY AND DISTALLY TO THE CARDINAL LINE. NEXT, THE TRANSVERSE CARPAL LIGAMENT WAS IDENTIFIED. A FREER ELEVATOR WAS USED TO SEPARATE THE NERVE FROM THE LIGAMENT. A METZENBAUM SCISSORS WAS THEN USED TO INCISE THE TRANSVERSE CARPAL LIGAMENT UNTIL THERE WAS A COMPLETE RELEASE OF THE CARPAL TUNNEL. THE MEDIAN NERVE WAS INTACT. THE TOURNIQUET WAS DEFLATED. THE BLEEDERS WERE CAUTERIZED. THE WOUND WAS WASHED. THE SKIN WAS APPROXIMATED WITH 4-0 NYLON SUTURE. STERILE DRESSING WAS APPLIED. PATIENT WAS EXTUBATED AND SENT TO THE RECOVERY ROOM. Estimated Blood Loss 5 Complications No immediate complications Condition Stable Disposition PACU
== END 2021-06-01 16:30 | disposition home or self-care (01) ==
PROVIDERS: PCP Internal Medicine; Visit Provider Orthopaedic Surgery
PROC: (CPT 64721; principal; 2021-06-01 14:00)
DX: G56.01 Carpal tunnel syndrome, right upper limb (principal); Z86.73 Personal history of transient ischemic attack (TIA), and cerebral infarction without residual deficits; Z79.82 Long term (current) use of aspirin; E66.9 Obesity, unspecified; Z68.38 Body mass index [BMI] 38.0-38.9, adult
CPT/HCPCS: 64721; 36415; 80048; 93005; A9270; J0690; J1100; J2250; J2405; J2704; J3010; J7120

== ENCOUNTER 2021-08-20 09:29 | Outpatient (CLI) | payer MEDICARE, SELFPAY ==
--- NOTE | ~2021-08-20 | MM_ITS ---
EXAMINATION: MM screening torri BI w rachell HISTORY: Screening mammogram TECHNIQUE: Craniocaudal and mediolateral oblique 3-D tomosynthesis images were obtained and synthetic 2-D images were generated. Bilateral rotated lateral CC views. CAD analysis was submitted and interp reted. COMPARISON: No prior mammogram is available for comparison at this institution. BREAST PARENCHYMAL COMPOSITION: The breasts are almost entirely fatty. FINDINGS: There is no evidence of suspicious mass, calcification, or architectural distortion to sugg est malignancy in either breast. There has been no suspicious interval change. IMPRESSION: 1. No mammographic evidence of malignancy. 2. Recommend routine screening mammography in one year. BI-RADS Category 1: Negative Reviewed, dictated and finalized at location A.
== END 2021-08-20 09:30 | disposition home or self-care (01) ==
LOC: ANHIMG 09:31
PROVIDERS: PCP Internal Medicine; Visit Provider Internal Medicine
DX: Z12.31 Encounter for screening mammogram for malignant neoplasm of breast (principal)
CPT/HCPCS: 77063; 77067

== ENCOUNTER 2021-11-13 08:34 | Emergency (ER) | payer MEDICARE, SELFPAY ==
--- NOTE | 2021-11-13 08:35 | ED.EAR ---
HPI - Ear Problem General Chief complaint: Ear Stated complaint: Left Ear Irritation Time Seen by Provider: 11/13/21 08:35 Source: patient Mode of arrival: ambulatory Limitations: no limitations History of Present Illness HPI Narrative: Ms. Sullivan is a 56-year-old male patient presenting to the clinic today with complaints of left ear irritation/feeling clogged. She reports symptoms began last night. She reports that her ears feel more clogged and slightly irritated. She denies any fever or chills. She has had a stroke on her left side when she was 10 years old and she does not feel very much pain on her left. She also has seasonal allergies and has been very congested here the last several months. Related Data Home Medications Medication Instructions Recorded Confirmed cholecalciferol (vitamin D3) 125 125 mcg PO HS 12/09/19 09/01/21 mcg (5,000 unit) tablet aspirin 81 mg chewable tablet 81 mg PO DAILY 05/25/21 09/01/21 metoprolol succinate 25 mg 25 mg PO BID 05/25/21 09/01/21 tablet,extended release 24 hr Allergies Allergy/AdvReac Type Severity Reaction Status Date / Time lisinopril Allergy Severe Anaphylaxis Verified 09/20/21 13:54 meperidine Allergy Severe Rash Verified 09/20/21 13:54 paroxetine AdvReac Mild Hallucinati Verified 09/20/21 13:54 ng ADAPTIC GAUZE Allergy Severe RASH Uncoded 09/20/21 13:54 ANTIBACTERIAL SOAP Allergy Severe RASH Uncoded 09/20/21 13:54 Review of Systems Review of Systems: Pertinent positives per HPI. Patient denies any fever, chills, rash, headache, visual changes, dizziness, cough, runny nose, sore throat, shortness of breath, chest pain, palpitations, nausea, vomiting, diarrhea, constipation, abdominal pain, or any urinary issues. 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 Hayes Right TKA 12/17/[address] Murphy History of carpal tunnel surgery Status post ankle arthrodesis Left ankle 05/30/[address] Hayes Family History Family History Other Diabetes mellitus Family history of alcoholism Family history of cardiovascular disease Family history of malignant neoplasm Family history of osteoarthritis Family history of transient ischemic attacks Social History Social History Smoking status: Never smoker Second hand tobacco smoke exposure: No Additional smoking assessment comments: DENIES ANY FORM OF TOBACCO/NICOTINE USE Alcohol intake: never Substance use: never Substance use type: does not use Gender identity (if verbalized by the patient): Female Spiritual care concerns: No Comments At the time of my signature, I reviewed and agree with the nursing past medical, surgical, social, and family history. There is no relevant family history pertinent to the patient complaint. Exam Narrative: General: Well-developed, well fanny
[2021-11-13 08:44] VITALS: BP 143/100; PULSE 84; RESP 16; TEMP 36.7; O2SAT 96
== END 2021-11-13 08:56 | disposition home or self-care (01) ==
PROVIDERS: Emergency Provider Nurse Practitioner Family; PCP Internal Medicine
DX: H65.02 Acute serous otitis media, left ear (principal); Z86.73 Personal history of transient ischemic attack (TIA), and cerebral infarction without residual deficits; I10 Essential (primary) hypertension; M17.0 Bilateral primary osteoarthritis of knee
CPT/HCPCS: 99213; G0463

== ENCOUNTER 2022-04-20 11:48 | Outpatient (CLI) | payer MEDICARE, SELFPAY ==
--- NOTE | 2022-04-20 12:40 | ECG_ITS ---
Measurements Intervals [place] Rate: 63 P: 0 MT: 173 QRS: -28 QRSD: 171 T: 125 QT: 459 QTc: 471 Interpretive Statements SINUS RHYTHM LEFT BUNDLE BRANCH BLOCK [120+ ms QRS DURATION, 80+ ms Q/S IN V1/V2, 85+ ms R IN I/aVL/V5/V6] COMPARED TO ECG 05/26/2021 11:24:50 NO SIGNIFICANT CHANGES Electronically Signed On 04-20-2022 15:06:34 OPERATING ENGINEER APPRENTICE by Bryson Sher M.D.
[2022-04-20 13:27] LABS: Basophils Absolute Auto 0.1 K/mm3 (0.0-0.1); Basophils Percent Auto 0.9 % (0.2-1.2); Eosinophils Absolute Auto 0.3 K/mm3 (0-0.3); Hematocrit 43.4 % (37.0-47.0); Hemoglobin 14.8 g/dL (12.0-15.0); Immature Granulocyte Absolute 0.01 K/mm3 (0.00-0.031); Immature Granulocyte Percent A 0.1 % (0-0.5); Mean Corpuscular HGB Conc 34.1 g/dl (32-36); Mean Platelet Volume 10.3 fl (7.4-10.4); Monocytes Absolute Auto 0.9 K/mm3 (0.1-0.6); Monocytes Percent Auto 12.7 % (2.6-8.5); Neutrophils Absolute Auto 3.5 K/mm3 (1.3-6.7); Neutrophils Percent Auto 51.3 % (45.5-73.1); Platelet Count Result 247 k/mm3 (150-375); Red Blood Count 4.77 M/mm3 (4.2-5.4); Red Cell Distribution Width 13.2 % (11.5-14.5); White Blood Count 6.8 K/mm3 (4.5-10.0)
[2022-04-20 13:29] LABS: Appearance Urine Clear (Clear); Bilirubin Urine Negative (Negative); Blood Urine Negative (Negative); Color Urine Yellow (Yellow); Glucose Urine UA Negative (Negative); Ketones Urine Negative (Negative); Leukocyte Esterase Ur Negative LEU/UL (Negative); Nitrate Urine Negative (Negative); Protein Urine Negative (Negative); Specific Grav Ur >= 1.030 (1.001-1.035); Urobilinogen Urine 0.2 mg/dL (<2.0); pH Urine 5.5 (5.0-9.0)
[2022-04-20 13:35] LABS: Albumin Level 4.5 g/dL (3.5-5.1); Anion Gap 7 mmol/L (8-16); Blood Urea Nitrogen 18 mg/dL (7-17); Calcium 8.9 mg/dL (8.4-10.2); Carbon Dioxide 29 mmol/L (22-30); Chloride 99 mmol/L (98-107); Estimated Glomerular Filt Rate 57; Glucose 86 mg/dL (65-110); Hemoglobin A1C 5.4 % (<5.7); Potassium 3.9 mmol/L (3.4-5.0); Sodium 135 mmol/L (137-145)
[2022-04-20 13:36] LABS: Bacteria Urine Trace /hpf; Mucus Urine Rare /lpf; RBC Urine 0-2 /hpf (0-2); Squamous Epithelial Cell Urine Many /hpf (Few); Urine Cotinine NEGATIVE; WBC Urine 0-3 /hpf
[2022-04-20 13:38] LABS: Add Urine Microscopic? NO
[2022-04-20 13:43] LABS: Partial Thromboplastin Time 24.9 SECONDS (22.3-36.8)
== END 2022-04-20 11:49 | disposition home or self-care (01) ==
PROVIDERS: PCP Internal Medicine; Visit Provider Orthopaedic Surgery
DX: M17.11 Unilateral primary osteoarthritis, right knee (principal); Z01.818 Encounter for other preprocedural examination; I44.7 Left bundle-branch block, unspecified
CPT/HCPCS: 80048; 80307; 81003; 82040; 83036; 85025; 85610; 85730; 87081; 93005

== ENCOUNTER 2022-05-04 11:38 | Inpatient (IN) | payer MEDICARE, SELFPAY ==
[2022-04-20 12:00] VITALS: BMI 39.6
--- NOTE | 2022-04-20 12:24 | PC.NURSE ---
Addendum entered by Annamaria Rodriguez RN 04/20/22 12:27: IBUPROFEN AND ASPIRIN PER DR TAMAYO Original Note: Report to the Outpatient Waiting Room, entrance under the green pavilion located off [facility], at time ___0600____ on date __05/04/22 . Planned Procedure Time: _0730 . Time changes happen often and if your time is changed the preop area will call you the afternoon before. - You and your visitor will be asked to self-screen and do not enter if you have any COVID symptoms. - Only one visitor is requested with a max of two and NO children visitors are allowed at this time. - The patient visitor may be requested to leave or wait in car when not with patient due to distancing restrictions. - A mask is optional within the hospital at this time. Patients may have clear liquids (water, carbonated beverages, clear teas, apple juice) until 3 hours prior to surgery with a maximum of 20 ounces. - No food from midnight until time of surgery - Infants may have breast milk until 4 hours before surgery, formula 6 hours prior to surgery. - Children will be allowed to drink immediately following surgery. If applicable, please bring a bottle or sippy cup to assist with drinking. Juice, water, soda, and popsicles are readily available. For infants on formula, please bring formula the day of surgery. Pacifiers are allowed. Take the following medications with a SIP of water the morning of surgery: __NEBIVOLOL DO NOT STOP ANY OF YOUR OTHER PRESCRIPTION MEDICATIONS PRIOR TO SURGERY ?EXCEPT THE FOLLOWING Medications to discontinue per physician ___ALL VITAMINS/SUPPLEMENTS 3 DAYS PRE OP . LAST DOSE 04/30/22___. IBUPROFEN PER DR TAMAYO Please no make-up, nail persian, hairspray, perfume, deodorant, or body powder the day of surgery. No jewelry (including any body piercings) or valuables the day of surgery, leave them at home. Please take a shower or bath the night before, or the morning of, surgery with an antibacterial soap. Wear comfortable, loose fitting clothing. Children are encouraged to wear pajamas. - Jewelry must be removed prior to entering the operating room. Rings and piercings that are not removed may be cut off. - The hospital will not accept responsibility for valuables. - Please leave all valuables, including medications, at home the day of surgery. If you are going home after surgery, a licensed flatbed driver must drive you home. - NO public transportation without another adult if you receive anesthesia. - We recommend that an adult stay with you for 24 hours following discharge. - We also recommend that you do not drive, make important decision, drink alcoholic beverages, or take any drugs that were not prescribed by your health care provider for at least 24 hours after your discharge time. Follow any additional instructions given to you from your surgeon. If you or anyone in your household have experienced Covid symptoms in the past week, please notify your surgeon or the nurse liaison at the phone number below for possible testing. VERBAL AND WRITTEN instructions given to __PATIENT and asked if any additional questions and then verbalized understanding. Patient advised to call surgeon office or pre surgery nurse liaison [phone] if any additional questions.
[2022-04-20 12:39] VITALS: BP 131/85; PULSE 63; RESP 18; TEMP 37.3; O2SAT 97
[2022-05-04] VITALS (17 sets, daily range): BP systolic 105–147; BP diastolic 55–85; PULSE 58–82; RESP 10–20; TEMP 36–38.2; O2SAT 92–100
--- NOTE | ~2022-05-04 | XR_ITS ---
EXAMINATION: [id number] DATE: 05/04/2022 10:36 INDICATION: Total right knee arthroplasty revision. Postop. TECHNIQUE: 2 views of right knee were obtained. COMPARISON: Right knee radiographs 03/07/2022 FINDINGS: There is a total right knee arthroplasty in near-anatomic alignment without patellar resurf acing. No fracture. There is gas in the soft tissues, consistent with recent surgery. Anterior skin s taples are noted. IMPRESSION: 1. Total right knee arthroplasty in near-anatomic alignment. Reviewed, dictated and finalized at location A. FINISHER
[2022-05-04] MEDS: TRANEXAMIC ACID 1,000MG/ISO100 1,000 MG/100 ML BAG 200 MG IVPB (06:55)
[2022-05-04] MEDS: LACTATED RINGERS 1,000 ML 30 ML IV CONT ×2 (06:58→10:13)
[2022-05-04] MEDS: ACETAMINOPHEN 500 MG TABLET 1000 MG PO (06:58)
--- NOTE | 2022-05-04 07:04 | WPDANESEPPF ---
Anes - Initial Pre Proc Eval Procedure: Operation Date: 05/04/22 07:30 Proposed Procedures p Right Total Knee Revision Arthroplasty with Poly Exchange - Miguel Murphy MD Date/Time: 05/04/22 07:04 Surgeon: Miguel Murphy MD Pre Op Diagnosis: right knee instability sp/ fall, presence tka Patient Data Age: 57 Gender: F Height: 1.68 m Weight: 111.8 kg Last Vital Signs Temp 37.3 C 05/04/22 06:30 Pulse 62 05/04/22 06:30 Resp 18 05/04/22 06:30 BP 126/77 05/04/22 06:30 Pulse Ox 96 05/04/22 06:30 O2 Del Method Room Air 05/04/22 06:30 Allergies Allergy/AdvReac Type Severity Reaction Status Date / Time lisinopril Allergy Severe Anaphylaxis Verified 05/04/22 06:06 meperidine Allergy Severe Rash Verified 05/04/22 06:06 paroxetine AdvReac Mild Hallucinati Verified 05/04/22 06:06 ng ADAPTIC GAUZE Allergy Severe RASH Uncoded 05/04/22 06:06 ANTIBACTERIAL SOAP Allergy Severe RASH Uncoded 05/04/22 06:06 Home Medications Medication Instructions Recorded Confirmed Type cholecalciferol (vitamin D3) 125 125 mcg PO DAILY 12/09/19 05/04/22 History mcg (5,000 unit) tablet hydrochlorothiazide 25 mg tablet 25 mg PO DAILY #30 tabs 01/26/20 05/04/22 Rx aspirin 81 mg chewable tablet 81 mg PO DAILY 05/25/21 05/04/22 History acetaminophen 500 mg capsule 1,000 mg PO Q6H PRN Pain 04/20/22 05/04/22 History ibuprofen 400 mg tablet 400 mg PO Q6H PRN Pain 04/20/22 05/04/22 History nebivolol 5 mg tablet 5 mg PO QAM 04/20/22 05/04/22 History Patient hx anesthesia problems: post op nausea/vomiting Family hx anesthesia problems: none Results Review: All pre-operative results and documents have been reviewed as part of the pre-operative evaluation. 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 Hayes Right TKA 12/17/[address] Murphy History of carpal tunnel surgery Status post ankle arthrodesis Left ankle 05/30/[address] Hayes Family History Family History Other Diabetes mellitus Family history of alcoholism Family history of cardiovascular disease Family history of malignant neoplasm Family history of osteoarthritis Family history of transient ischemic attacks Social History Social History Smoking status: Never smoker Second hand tobacco smoke exposure: No Additional smoking assessment comments: DENIES ANY FORM OF TOBACCO USE Alcohol intake: never Substance use: never Substance use type: does not use Living arrangements: alone Gender identity (if verbalized by the patient): Female Spiritual care concerns: No Anes - Eval Final PreProcedure Day of Procedure 05/04/22 07:04 Patient weight: obese Heart: regular rate and rhythm Lungs: clear to auscultation Airway: Mallampati scale class III Neurological: alert and oriented Last oral intake: >/= 8 hours ASA
[2022-05-04] MEDS: SCOPOLAMINE 1.5 MG PATCH TRANSDERM (07:08)
--- NOTE | 2022-05-04 07:16 | WPDHPUPDATE1 ---
History and Physical Update Update Date/Time: 05/04/22 07:16 History and Physical has been reviewed, including an updated exam of the patient. There are NO changes in the patient's condition. Risks, benefits, and alternatives have been discussed and questions answered. Patient agrees to proceed with procedure.
[2022-05-04] MEDS: ceFAZolin 2 GM/D5W 50 ML 2 GM/50 ML BAG IVPB ×3 (07:37→23:42)
[2022-05-04] MEDS: TRANEXAMIC ACID 1,000 MG/10 ML AMPUL 1000 MG IV PUSH (09:28)
--- NOTE | 2022-05-04 10:10 | SUR.OPER ---
130mL clear yellow urine drained from orozco in OR. Orozco removed in OR
--- NOTE | 2022-05-04 10:15 | W.PM.PROC2 ---
Procedure Note - Detailed Date of Procedure 05/04/22 Pre-op Diagnosis right knee instability sp/ fall, with previous tka Post-op Diagnosis Same Procedure Performed RIGHT KNEE REVISION OF POLYETHYLENE COMPONENT Surgeon Miguel Murphy MD Anesthesia General Description of Procedure THE RIGHT KNEE WAS PREPPED AND DRAPED IN THE STERILE FASHION. A MIDLINE SKIN INCISION WAS MADE OVER THE OLD SCAR. FULL THICKNESS MEDIAL AND LATERAL FLAPS WERE PREFORMED. A MEDIAL PARAPATELLAR ARTHROTOMY WAS MADE. THE PATELLA WAS EVERTED. THERE WAS A LARGE OSTEOPHYTE OVERHANGING ON THE LATERAL FACET. THE FEMORAL AND TIBIAL COMPONENT WERE WELL FIXED WITH NO SIGN OF LOOSENING. THERE WAS SOME WEAR TO PART OF THE POLYETHYLENE COMPONENT. THE POLY COMPONENT WS REMOVED. SYNOVECTOMY WAS PREFORMED ON SOME HYPERTROPHIC SYNOVIUM. THE KNEE WAS IRRIGATED THOROUGHLY. THE KNEE WAS TAKEN THROUGH A RANGE OF MOTION. IN ABOUT 90 DEG OF FLEXION AND VALGUS STRESS THE IMPLANT WOULD SUBLUXATE. THE OLD POLY WAS REMOVED. THE KNEE JOINT WAS IRRIGATED ONCE AGAIN. A 20 MM POLY TRIAL WAS PLACED. THE KNEE WAS TAKEN THROUGH A RANGE OF MOTION. THE KNEE CAME OUT TO FULL EXTENSION. THERE WAS NO ABNORMAL TILT TO THE PATELLA. THERE WAS GOOD A/P AND VARUS/VALGUS STABILITY. AN ATTEMPT TO SUBLUX THE KNEE IN 90 DEG OF FLEXION AND VALGUS STRESS REVEALED NO SUBLUXATION OR INSTABILITY. THERE WAS NO EXCESSIVE ROLL BACK WITH FLEXION. THE TRIAL POLY WAS REMOVED. A 20 POLYETHYLENE COMPONENT WAS INSERTED AND LOCKED TO THE TIBIAL COMPONENT. THE KNEE WAS TAKEN THROUGH A ROM AGAIN AND FOUND TO BE STABLE WITH NO PATELLA TILT NO EXCESSIVE ROLL BACK WITH FLEXION AND GOOD STABILITY WITH COMPLETE AND FULL EXTENSION. AN ATTEMPT TO SUBLUXATE THE KNEE ONCE AGAIN WAS PREFORMED AND THERE WAS NO SIGN O INSTABILITY. THE KNEE WAS IRRIGATED WITH STERILE BETADINE AND WATER FOR ABOUT 3 MINUTES. THE BLEEDERS WERE CAUTERIZED. THE ARTHROTOMY WAS REPAIRED WITH NUMBER 1 VICRYL. THE SUB CUTANEOUS LAYER WITH 2-0 VICRYL AND THE SKIN WITH KAVIN. THE WOUND WAS WASHED AND A STERILE DRESSING WAS APPLIED. PATIENT WAS EXTUBATED. Estimated Blood Loss 100 Pathology None sent Complications No immediate complications Condition Stable Disposition PACU
--- NOTE | 2022-05-04 11:17 | WPDANESPNB ---
Anes - Peripheral Nerve Block Date/Time: 05/04/22 11:17 I have discussed with the patient/family/POA the placement of a peripheral nerve block for post-operative pain management, including associated risks, benefits, complications, and side effects. Alternative methods of post-operative analgesia were detailed. Questions were solicited and answers provided to the satisfaction of the patient/family/POA. Time-Out: A pre-procedural Time-Out was completed immediately before starting the procedure and confirmed: Patient Identification, Site, Procedure, Patient Position and the Availability of Requisite Equipment. Clinical Indications: Acute post-operative pain management requested by the operative surgeon. Nerve Block Insertion Note Anes-nerve block: adductor canal right Patient position: supine Skin prep: chlorhexidine Needle: 22 gauge, stimulating, insulated echogenic needle. Needle length: 80 mm Technique: ultrasound Technique comment: mid 2mg [id number] Injectate: bupivacaine 0.5% with epi 5 mcg/ml (30ml no epi) and dexamethasone (mg) (4) Observations: tolerated well Complications: none Procedure start time:: 724 Procedure end time:: 731
[2022-05-04] MEDS: fentaNYL CITRATE INJ (*CRX) 100 MCG/2 ML VIAL 25 MCG IV PUSH (11:26)
[2022-05-04] MEDS: SODIUM CHLORIDE 0.9% IV 1,000 ML 125 ML IV CONT (11:53)
--- NOTE | 2022-05-04 11:58 | ADMGEN ---
This patient, Olivia Sullivan, was admitted to 2 Medical Room 260-01. Patient/family oriented to hospital policies and general routines including ID bracelet, bed and alarms, visiting hours, pain management, procedures, bathroom and other care routines, personal items, smoking policy, room service/diet, and visiting hours. Information on how to activate the Rapid Response Team has been discussed. Patient/Family are encouraged to report perceived risks to care and to ask questions if they do not understand what they are told or what they should do.
[2022-05-04] MEDS: ONDANSETRON INJ 4 MG/2 ML VIAL IV PUSH ×2 (12:10→21:01)
[2022-05-04] MEDS: KETOROLAC 15 MG/ML VIAL (*BKC) IV PUSH ×3 (12:26→23:42)
[2022-05-04] MEDS: SENNA/DOCUSATE SODIUM TABLET 2 TAB PO (18:03)
[2022-05-04] MEDS: oxyCODONE/ACETAMINOPHEN (*CRX) 5-325 MG TABLET 1 TABLET PO (18:08)
[2022-05-04] MEDS: FAMOTIDINE 20 MG TABLET PO (21:01)
[2022-05-05 06:06] LABS: Basophils Percent Auto 0.3 % (0.2-1.2); Eosinophils Percent Auto 0.2 % (0-4.4); Hematocrit 34.3 % (37.0-47.0); Hemoglobin 11.3 g/dL (12.0-15.0); Immature Granulocyte Absolute 0.07 K/mm3 (0.00-0.031); Immature Granulocyte Percent A 0.6 % (0-0.5); Lymphocytes Absolute Auto 1.21 K/mm3 (0.9-3.2); Lymphocytes Percent Auto 10.9 % (18.3-44.2); Mean Corpuscular HGB Conc 32.9 g/dl (32-36); Mean Corpuscular Hemoglobin 30.6 pg (26-34); Mean Platelet Volume 10.9 fl (7.4-10.4); Monocytes Absolute Auto 1.3 K/mm3 (0.1-0.6); Monocytes Percent Auto 11.7 % (2.6-8.5); Neutrophils Absolute Auto 8.4 K/mm3 (1.3-6.7); Neutrophils Percent Auto 76.3 % (45.5-73.1); Platelet Count Result 201 k/mm3 (150-375); Red Blood Count 3.69 M/mm3 (4.2-5.4); Red Cell Distribution Width 13.4 % (11.5-14.5); White Blood Count 11.1 K/mm3 (4.5-10.0)
[2022-05-05] MEDS: ceFAZolin 2 GM/D5W 50 ML 2 GM/50 ML BAG IVPB (06:06)
[2022-05-05] MEDS: KETOROLAC 15 MG/ML VIAL (*BKC) IV PUSH ×2 (06:06→11:15)
[2022-05-05 06:18] LABS: Anion Gap 4 mmol/L (8-16); Blood Urea Nitrogen 18 mg/dL (7-17); Calcium 8.1 mg/dL (8.4-10.2); Carbon Dioxide 23 mmol/L (22-30); Chloride 109 mmol/L (98-107); Estimated CRCL calculation 70 ml/min; Estimated Glomerular Filt Rate 57; Glucose 103 mg/dL (65-110); Potassium 3.8 mmol/L (3.4-5.0); Sodium 136 mmol/L (137-145)
[2022-05-05 07:01] VITALS: BP 106/52; PULSE 60; RESP 16; TEMP 36.6; O2SAT 96
[2022-05-05 08:35] VITALS: PULSE 67
[2022-05-05] MEDS: NEBIVOLOL HCL 5 MG TABLET PO (08:35)
[2022-05-05] MEDS: hydroCHLOROthiazide 25 MG TABLET PO (08:35)
[2022-05-05] MEDS: CHOLECALCIFEROL 1,000 UNITS TABLET 5000 UNITS PO (08:36)
[2022-05-05] MEDS: SENNA/DOCUSATE SODIUM TABLET 2 TAB PO (08:37)
[2022-05-05] MEDS: FAMOTIDINE 20 MG TABLET PO (08:37)
[2022-05-05] MEDS: polyethylene glycoL 3350 17 GM POWD.PACK PO (08:38)
[2022-05-05] MEDS: ASPIRIN 81 MG CHEWABLE TABLET PO (08:53)
[2022-05-05 09:56] VITALS: BP 94/59; PULSE 84; RESP 17; TEMP 37.6; O2SAT 97
[2022-05-05] MEDS: oxyCODONE/ACETAMINOPHEN (*CRX) 5-325 MG TABLET 1 TABLET PO (10:44)
--- NOTE | 2022-05-05 12:35 | WPDANESPN ---
Anes - Prog Note Post-Op Date/Time: 05/05/22 12:35 Vital Signs: Last Vital Signs Temp 37.6 C H 05/05/22 09:56 Pulse 84 05/05/22 09:56 Resp 17 05/05/22 09:56 BP 94/59 L 05/05/22 09:56 Pulse Ox 97 05/05/22 09:56 O2 Del Method Room Air 05/05/22 08:30 O2 Flow Rate 2 05/04/22 12:48 Pain Score (VAS): 2 I/O: Intake & Output 05/04/22 05/05/22 05/05/22 23:59 07:59 15:59 Intake Total 200 450 240 Balance 200 450 240 Laboratory Tests 05/05/22 05:48 05/05/22 05:48 05/05/22 05/05/22 05:48 05:48 WBC 11.1 H RBC 3.69 L Hgb 11.3 L D Hct 34.3 L MCV 93.0 MCH 30.6 MCHC 32.9 RDW 13.4 Plt Count 201 MPV 10.9 H Immature Gran % (Auto) 0.6 H Neut % (Auto) 76.3 H Lymph % (Auto) 10.9 L [place] % (Auto) 11.7 H Eos % (Auto) 0.2 Baso % (Auto) 0.3 Lymph # (Auto) 1.21 [place] # (Auto) 1.3 H Eos # (Auto) 0.0 Baso # (Auto) 0.0 Abs Immat Gran (auto) 0.07 H Absolute Neuts (auto) 8.4 H Absolute Nucleated RBC 0.0 Nucleated RBC % 0.0 Sodium 136 L Potassium 3.8 Chloride 109 H Carbon Dioxide 23 Anion Gap 4 L BUN 18 H Creatinine 1.00 Estim Creat Clear Calc 70 Estimated GFR 57 L Glucose 103 Calcium 8.1 L Patient Feedback: Patient satisfied with anesthetic care.
[2022-05-05 13:41] VITALS: BP 102/66; PULSE 65; RESP 17; TEMP 37.2; O2SAT 98
--- NOTE | 2022-05-05 14:03 | PM.PNORT ---
Progress Note: A&P Assessment and Plan (1) Instability of knee joint: Qualifiers: Laterality: right Qualified Code(s): M25.361 - Other instability, right knee Code(s): M25.369 - Other instability, unspecified knee Status: Acute Assessment and Plan: POD 1 DOING WELL WITH GOOD PROGRESS WITH PT. OK TO DC HOME TODAY. F/U IN 3 WEEKS. (2) S/P total knee arthroplasty: Qualifiers: Laterality: right Qualified Code(s): Z96.651 - Presence of right artificial knee joint Code(s): Z96.659 - Presence of unspecified artificial knee joint Status: Acute Subjective Subjective Date/Time Seen: 05/05/22 14:03 POD 1 DOING WELL. UP WITH PT AND MINIMAL DISCOMFORT. NO INSTABILITY. NO CALF PAIN. Exam Extrem: Other: VSS AFEBRILE DRESSING DRY NV INTACT NEG HOMANS SIGN, CALF SOFT NON TENDER Objective Data Vital Signs Vital Signs: Vital Signs - 24 hr 05/04/22 15:41 05/04/22 17:25 05/04/22 20:36 Temperature 36.5 C 36.4 C Pulse Rate 77 66 Respiratory Rate 20 16 Blood Pressure 126/58 L 119/67 Pulse Oximetry 100 97 Oxygen Delivery Room Air 05/04/22 20:00 05/04/22 23:44 05/05/22 07:01 Temperature 36.8 C 36.6 C Pulse Rate 66 58 L 60 Respiratory Rate 16 16 16 Blood Pressure 105/55 L 106/52 L Pulse Oximetry 97 97 96 Oxygen Delivery Room Air 05/05/22 08:35 05/05/22 09:56 05/05/22 08:30 Temperature 37.6 C H Pulse Rate 67 84 Respiratory Rate 17 Blood Pressure 94/59 L Pulse Oximetry 97 Oxygen Delivery Room Air 05/05/22 13:41 Temperature 37.2 C Pulse Rate 65 Respiratory Rate 17 Blood Pressure 102/66 Pulse Oximetry 98 Oxygen Delivery Intake/Output Intake/Output: Intake & Output 05/02/22 05/03/22 05/04/22 05/05/22 23:59 23:59 23:59 23:59 Intake Total 800 930 Balance 800 930 Meds/Results Medications: Active Medications Generic Name Dose Route Start Last Admin Trade Name Freq PRN Reason Stop Dose Admin Acetaminophen 1,000 mg 05/04/22 11:38 Acetaminophen 500 Mg Tablet PO Q6H PRN Mild Pain (1-3) Aspirin 81 mg 05/05/22 09:00 05/05/22 08:53 Aspirin 81 Mg Chewable Tablet PO 81 mg DAILY COURTNEY Administration Diazepam 5 mg 05/04/22 11:38 Diazepam (*Crx) 5 Mg Tablet PO Q8H PRN Spasms Diphenhydramine HCl 25 mg 05/04/22 11:38 Diphenhydramine Hcl Inj 50 Mg/Ml Vial IV PUSH Q6H PRN Itching Famotidine 20 mg 05/04/22 21:00 05/05/22 08:37 Famotidine 20 Mg Tablet PO 20 mg Q12HR COURTNEY Administration Hydrochlorothiazide 25 mg 05/05/22 09:00 05/05/22 08:35 Hydrochlorothiazide 25 Mg Tablet PO 25 mg DAILY COURTNEY Administration Naloxone HCl 0.1 mg 05/04/22 11:38 Naloxone Hcl 0.4 Mg/Ml Vial IV PUSH Q2M PRN Opiate Reversal Nebivolol 5 mg 05/05/22 09:00 05/05/22 08:35 Nebivolol Hcl 5 Mg Tablet PO 5 mg QAM COURTNEY Administration Ondansetron HCl 4 mg 05/04/22 11:38 05/04/22 21:01 Ondansetron Inj 4 Mg/2 Ml Vial IV PUSH 4 mg Q4H PRN Administration Nausea And Vomiting Oxycodone/Acetaminophen 1 tablet 05/04/22 11:38 05/05/22 10:44 Oxycodone/Acetaminophen (*Crx) 5-325 Mg Tablet PO 1 tablet Q4H PRN Administration Pain Rated 4-6 Oxycodone/Acetaminophen 2 tablet 05/04/22 11:38 Oxycodone/Acetaminophen (*Crx) 5-325 Mg Tablet PO Q6H PRN Pain Rated 7-10 Polyethylene Glycol 17 gm 05/05/22 09:00 05/05/22 08:38 Polyethylene Glycol 3350 17 Gm Powd.Pack PO 17 gm QAM COURTNEY Administration Senna/Docusate Sodium 2 tab 05/04/22 17:00 05/05/22 08:37 Senna/Docusate Sodium Tablet PO 2 tab BID COURTNEY Administration Vitamin D 5,000 units 05/05/22 09:00 05/05/22 08:36 Cholecalciferol 1,000 Units Tablet PO 5,000 units DAILY COURTNEY Administration Radiology Results: ITS Impressions Knee X-Ray 05/04/22 10:37 IMPRESSION: 1. Total right knee arthroplasty in near-anatomic alignment.
--- NOTE | 2022-05-05 14:28 | PM.DS ---
DS: Admitting Diagnosis Discharge Date 05/05/22 Admitting Diagnosis RIGHT TKA INSTABILITY DS: Discharge Diagnosis Discharge Diagnosis (1) Instability of knee joint: Qualifiers: Laterality: right Qualified Code(s): M25.361 - Other instability, right knee Code(s): M25.369 - Other instability, unspecified knee Status: Acute (2) S/P total knee arthroplasty: Qualifiers: Laterality: right Qualified Code(s): Z96.651 - Presence of right artificial knee joint Code(s): Z96.659 - Presence of unspecified artificial knee joint Status: Acute DS: Summary Hospital Course Reason for hospitalization: R TKA REVISION Hospital Course: PATIENT WAS ADMITTED S/P TOTAL KNEE REVISION ARTHROPLASTY FOR POSTOPERATIVE MEDICAL MANAGEMENT, PAIN CONTROL AND MOBILIZATION WITH PHYSICAL AND OCCUPATIONAL THERAPY. THE PATIENT PROGRESSED WELL WITH PT/OT. LABS AND VITALS REMAINED STABLE AND PAIN WELL CONTROLLED. THE PATIENT HAS BEEN CLEARED TO BE DISCHARGED HOME. FOLLOW UP APPOINTMENT SCHEDULED. DISCHARGE INSTRUCTIONS DISCUSSED AT LENGTH WITH THE PATIENT. MEDICATIONS REVIEWED. Status at Discharge Functional status at discharge: uses cane/walker Time Spent with Patient Time attestation: Total time spent providing and/or coordinating discharge services: DS: Data Data Completed and Pending Labs on day of discharge: Labs from last 24 hours 05/05/22 05/05/22 05:48 05:48 WBC 11.1 H RBC 3.69 L Hgb 11.3 L D Hct 34.3 L MCV 93.0 MCH 30.6 MCHC 32.9 RDW 13.4 Plt Count 201 MPV 10.9 H Immature Gran % (Auto) 0.6 H Neut % (Auto) 76.3 H Lymph % (Auto) 10.9 L [place] % (Auto) 11.7 H Eos % (Auto) 0.2 Baso % (Auto) 0.3 Lymph # (Auto) 1.21 [place] # (Auto) 1.3 H Eos # (Auto) 0.0 Baso # (Auto) 0.0 Abs Immat Gran (auto) 0.07 H Absolute Neuts (auto) 8.4 H Absolute Nucleated RBC 0.0 Nucleated RBC % 0.0 Sodium 136 L Potassium 3.8 Chloride 109 H Carbon Dioxide 23 Anion Gap 4 L BUN 18 H Creatinine 1.00 Estim Creat Clear Calc 70 Estimated GFR 57 L Glucose 103 Calcium 8.1 L Discharge Plan Discharge Attending physician on discharge: Miguel Murphy Discharging Clinician: Miguel Murphy Anticipated Discharge Date/Time: 05/05/22 14:31 Patient Disposition: Home Health Service Activity: may shower, no driving and follow weight bearing status Diet: as tolerated Wound Care Instructions: follow printed instructions and keep dressing dry Discharge Instructions: Per Care Coordination. Patient to have [facility] for RN/PT/OT eval and treat [phone]. RN please fax discharge instructions to: [phone] Patient Instructions: Antibiotic Form Stand Alone Forms: General Discharge Information Follow-up/Referrals: Miguel Murphy MD [Physician] - 3 Weeks Discharge Medications: New hydrocodone-acetaminophen 5-325 mg tablet 1 tablet PO Q8H PRN (Reason: pain) Qty: 30 0RF Continued cholecalciferol (vitamin D3) 125 mcg (5,000 unit) Tablet 125 mcg PO DAILY hydrochlorothiazide 25 mg tablet 25 mg PO DAILY Qty: 30 0RF Label Comments: TAKES 12.5 MG DAILY nebivolol 5 mg tablet 5 mg PO QAM acetaminophen [Tylenol Extra Strength] 500 mg Capsule 1,000 mg PO Q6H PRN (Reason: Pain) ibuprofen 400 mg Tablet 400 mg PO Q6H PRN (Reason: Pain) Discontinued aspirin 81 mg Tablet,Chewable 81 mg PO DAILY Date of admission: 05/04/22 11:38 Primary Care Provider: Nadir,Nate Fiore Admitting Provider: Miguel Murphy Attending physician on admission: Miguel Murphy Condition: Stable
== END 2022-05-05 15:37 | disposition home health service (06) | DRG 489 ==
LOC: ANH2MED 14:27
PROVIDERS: Admitting Provider Orthopaedic Surgery; PCP Internal Medicine; Visit Provider Orthopaedic Surgery
PROC: 0SPC09Z Removal of Liner from Right Knee Joint, Open Approach (ICD-10-PCS; CPT 27487; principal; 2022-05-04 07:30)
DX: M25.361 Other instability, right knee (principal); M70.71 Other bursitis of hip, right hip; E66.9 Obesity, unspecified; M17.11 Unilateral primary osteoarthritis, right knee; M19.071 Primary osteoarthritis, right ankle and foot; Z96.651 Presence of right artificial knee joint; Z68.39 Body mass index [BMI] 39.0-39.9, adult; Z86.73 Personal history of transient ischemic attack (TIA), and cerebral infarction without residual deficits; W19.XXXA Unspecified fall, initial encounter
CPT/HCPCS: 36415; 73560; 80048; 80307; 81003; 82040; 83036; 85025; 85610; 85730; 86850; 86900; 86901; 87081; 93005; 97110; 97116; 97161; 97165; 97530; 97535; A9270; C1713; C1776; J0171; J0690; J1100; J1170; J1885; J2250; J2270; J2370; J2405; J2704; J2795; J3010; J3370; J7030; J7120

== ENCOUNTER 2022-08-26 09:00 | Outpatient (RCR) | payer MEDICARE, SELFPAY ==
--- NOTE | 2022-05-31 13:50 | PTOPEVAL1 ---
Assessment and note entered by Susanna Paris DPT Evaluation Information Assessment Status Evaluation Subjective Information Pt is s/p R TKA revision on 05/04/22. Was supposed to have home health but it fell through. Highest pain in the last week 7/10 and lowest 5/10. Pain is worst at night. Reports difficulty walking around her house, sitting in a low chair or couch, sleeping. Pt is not cooking or cleaning but normally would be. Pt lives alone, has a ramp to get into her house and no stairs inside. Has a friend who can come help cook and clean. Was using a cane prior to surgery and is now using a walker . Pt is not driving currently but was. Patient goal: be able to drive and do activities. Returns to MD 07/04/22. Pt has had a stroke with affects her left side and has a fused left ankle. Reported Pain Level Pain Score 6: Self Report Assessment PT Clinical Summary The patient is presenting to skilled therapy s/p R TKA revision on 05/04/22. She presents with decreased strength, decreased range of motion, and gait impairments which are contributing to her current walker use and difficulty doing cooking and cleaning activities. She will benefit from therapy to address these impairments and safely return to prior level of function. Plan of Care Interventions Electrical Stimulation,Gait Training,Hot Pack/Cold Pack,Manual Therapy,Neuro Re-education,Patient/ Caregiver Education,Therapeutic Activities, Therapeutic Exercise,Self-Care/Home Management PT Services Indicated Yes Treatment Frequency and 2 times a week for 4 weeks Duration These treatments will address the objective and functional deficits as defined above. The patient will be advanced safely and appropriately in order for the patient to progress towards his/her prior level of function. Additional exercises will be introduced and as well as a comprehensive home exercise program upon discharge, if needed, ?to ensure carryover of functional gains achieved in the clinic. This treatment plan has been reviewed and agreement upon by the patient.
--- NOTE | 2022-06-28 09:49 | PTOPPROG ---
Assessment and note entered by Susanna Paris DPT Evaluation Information Assessment Status Progress Subjective Information Highest pain in last week 8/10 and lowest 7/10. Pain is just located to right above her patella, the rest of her knee has decreased to a 2/10. Pt reports she is a lot better with therapy, can put her shoes and socks on easier and can do more around the house like vacuum, wash dishes, cook, laundry. Has to pace herself still. Went back to work, can sit down if needed. Using a walker except at home will go without. Used a cane prior to her knee surgery. Returns to MD next week. Assessment PT Clinical Summary The patient has made good progress in therapy. She reports decreased pain overall except for superior to her patella. She has been able to return to more ADL's including cooking and cleaning and has returned to work. She demonstrates improved knee flexion to 110 degrees and greatly improved walking speed on the 2 minute walk test. Due to her progress but continued pain and difficulty with ambulation at home and work, she will benefit from more therapy to return to prior level of function. Plan of Care Interventions Electrical Stimulation,Gait Training,Hot Pack/Cold Pack,Manual Therapy,Neuro Re-education,Patient/ Caregiver Education,Therapeutic Activities, Therapeutic Exercise,Self-Care/Home Management PT Services Indicated Yes Treatment Frequency and 2 times a week for 4 weeks Duration These treatments will address the objective and functional deficits as defined above. The patient will be advanced safely and appropriately in order for the patient to progress towards his/her prior level of function. Additional exercises will be introduced and as well as a comprehensive home exercise program upon discharge, if needed, ?to ensure carryover of functional gains achieved in the clinic. This treatment plan has been reviewed and agreement upon by the patient.
--- NOTE | 2022-07-29 09:51 | PTOPPROG ---
Assessment and note entered by Susanna Paris DPT Evaluation Information Assessment Status Progress Subjective Information Highest pain in the last week 7/10 above her patella still, with bending activities like stand to sit. Lowest 3/10 in last week. Still reports she is slow getting around at home and at work. Not using her walker at home or in a small area at work, does use it for longer distances at work. Also reports she is feeling more steady. Has been able to walk in the pool 3 times a week. Reports a fear of falling if trying to walk without an assistive device. Reports prior to surgery she was able to walk without one some of the time. Patient goal: walk without cane or walker and get rid of pain. Next MD visit is in September. Assessment PT Clinical Summary The patient has continued to make good progress in therapy. She reports decreased pain overall but continues to have pain with knee flexion especially with stand to sit. She demonstrates improved walking speed and range of motion. She will continue to benefit from therapy to further address her pain and walking ability to return to prior level of function. Plan of Care Interventions Electrical Stimulation,Gait Training,Hot Pack/Cold Pack,Manual Therapy,Neuro Re-education,Patient/ Caregiver Education,Therapeutic Activities, Therapeutic Exercise,Self-Care/Home Management PT Services Indicated Yes Treatment Frequency and 1-2 times a week for 4 weeks Duration These treatments will address the objective and functional deficits as defined above. The patient will be advanced safely and appropriately in order for the patient to progress towards his/her prior level of function. Additional exercises will be introduced and as well as a comprehensive home exercise program upon discharge, if needed, ?to ensure carryover of functional gains achieved in the clinic. This treatment plan has been reviewed and agreement upon by the patient.
--- NOTE | 2022-08-26 09:27 | PTOPDC ---
Assessment and note entered by Susanna Paris DPT Evaluation Information Assessment Status Discharge Subjective Information Highest pain in last week 7/10 and lowest 5/10. Still worst pain is above patella. Uses the walker out in the community and to get in/out of work. When she is in her building at work or home she uses the cane or walks without if she can hold onto furniture. Thinks her follow up with the MD is in October. Has noticed improvement in her ability to navigate the stairs in and out of the pool she uses for walking. Reported Pain Level Pain Score 6: Self Report Assessment PT Clinical Summary The patient has reached a plateau in progress at this time. Her ROM and walking distance on the 2 min walk test remains the same, and she continues to have the same level of pain. She is able to do all ADL's and work activities but requires the occasional use of her walker. Plan for discharge at this time with recommendation to follow up with MD for her continued pain. Plan of Care PT Services Indicated No
== END 2022-08-26 09:39 | disposition home or self-care (01) ==
LOC: ANHPT 09:00
PROVIDERS: PCP Internal Medicine; Visit Provider Orthopaedic Surgery
DX: Z48.89 Encounter for other specified surgical aftercare (principal); M25.361 Other instability, right knee; Z96.651 Presence of right artificial knee joint
CPT/HCPCS: 97014; 97110; 97112; 97140; 97162; 97530; G0283

== ENCOUNTER → 2022-10-17 10:01 | Outpatient (CLI) | payer MEDICARE, SELFPAY ==
--- NOTE | ~2022-10-17 | XR_ITS ---
EXAMINATION: XR hip RT 2V w AP pelvis INDICATION: Right hip pain TECHNIQUE: AP view the pelvis and two views of the right hip are obtained. COMPARISON: None available FINDINGS: Bone alignment is normal. There is no fracture. There is mild osteoarthritis of the hips. P hleboliths are noted in the pelvis. IMPRESSION: 1. Mild osteoarthritis of the hips. Reviewed, dictated and finalized at location A.
--- NOTE | ~2022-10-17 | XR_ITS ---
EXAMINATION: XR foot RT min 3V DATE: 10/17/2022 10:45 INDICATION: Right foot pain TECHNIQUE: Dorsoplantar, lateral, and 2 oblique views of the right foot were obtained. COMPARISON: 09/01/2021 FINDINGS: Bone alignment is normal. There is no fracture. There is mild osteoarthritis at the first m etatarsophalangeal joint and in multiple interphalangeal joints. Mild osteoarthritis is noted in the midfoot. There is dorsal soft tissue swelling of the foot overlying the metatarsals. IMPRESSION: 1. Polyarticular osteoarthritis and dorsal soft tissue swelling of the foot without acute osseous abn ormality. Reviewed, dictated and finalized at location A. IMPRESSION: 1. Polyarticular osteoarthritis and dorsal soft tissue swelling of the foot wit hout acute osseous abnormality.
== END ==
PROVIDERS: PCP Pain Medicine Pain Medicine; Visit Provider Pain Medicine Pain Medicine
DX: M16.11 Unilateral primary osteoarthritis, right hip (principal); M19.071 Primary osteoarthritis, right ankle and foot; M79.89 Other specified soft tissue disorders
CPT/HCPCS: 73502; 73630

== ENCOUNTER 2023-05-06 19:39 | Emergency (ER) | payer MEDICARE, SELFPAY ==
--- NOTE | 2023-05-06 19:46 | ED.EXTPRO ---
HPI - Extremity Problem General Stated complaint: left wrist pain Time Seen by Provider: 05/06/23 19:50 Source: patient and RN notes reviewed Mode of arrival: ambulatory Limitations: no limitations History of Present Illness HPI Narrative: 58-year-old female presents with concern for lateral left wrist pain. Reports this started hurting yesterday without injury or trauma. She reports she used a wrist brace that made the pain go away. She denies redness, swelling, warmth. MD Complaint: extremity pain Related Data Home Medications Medication Instructions Recorded Confirmed hydrochlorothiazide 12.5 mg capsule 12.5 mg PO DAILY 05/06/23 05/06/23 nebivolol 5 mg tablet 5 mg PO DAILY 05/06/23 05/06/23 tizanidine 4 mg tablet 4 mg PO PRN PRN Muscle Pain 05/06/23 05/06/23 Allergies Allergy/AdvReac Type Severity Reaction Status Date / Time lisinopril Allergy Severe Anaphylaxis Verified 05/06/23 19:49 meperidine Allergy Severe Rash Verified 05/06/23 19:49 paroxetine AdvReac Mild Hallucinati Verified 05/06/23 19:49 ng ADAPTIC GAUZE Allergy Severe RASH Uncoded 05/06/23 19:49 ANTIBACTERIAL SOAP Allergy Severe RASH Uncoded 05/06/23 19:49 Review of Systems Review of Systems: CONSTITUTIONAL: Denies malaise, chills, sweats, or fever. CARDIOVASCULAR: Denies chest pain, palpitations, or edema. RESPIRATORY: Denies cough or dyspnea. SKIN: Denies rash or itching, bruising, redness, swelling. 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 Hayes Right TKA 12/17/[address] Murphy History of carpal tunnel surgery Status post ankle arthrodesis Left ankle 05/30/[address] Hayes Status post revision of total replacement of right knee Family History Family History Other Diabetes mellitus Family history of alcoholism Family history of cardiovascular disease Family history of malignant neoplasm Family history of osteoarthritis Family history of transient ischemic attacks Social History Social History Smoking status: Never smoker Second hand tobacco smoke exposure: No Alcohol intake: never Substance use: never Substance use type: does not use Lack of Transportation: No Lack of Food: Never True Current Housing: I Have Housing Concerned About Future Housing: No Difficulty Paying Gas/Electric Bills: No Difficulty Paying for Meds: No Currently Unemployed: No Education: Associate Degree Difficulty w/ Childcare or Family Care: No Living arrangements: alone Gender identity (if verbalized by the patient): Female Spiritual care concerns: No Comments At time of signature, agree with nursing past medical, surgical, social and family history. There is no
[2023-05-06 19:51] VITALS: BP 171/88; PULSE 85; RESP 16; TEMP 37.1; O2SAT 98
== END 2023-05-06 19:58 | disposition home or self-care (01) ==
PROVIDERS: Emergency Provider Nurse Practitioner; PCP Internal Medicine
DX: M25.532 Pain in left wrist (principal); I10 Essential (primary) hypertension; M19.071 Primary osteoarthritis, right ankle and foot; M17.11 Unilateral primary osteoarthritis, right knee; I69.354 Hemiplegia and hemiparesis following cerebral infarction affecting left non-dominant side
CPT/HCPCS: 99212; G0463